=== PATIENT | female | born 1945 | race Caucasian/White ===

== ENCOUNTER 2023-09-14 13:35 | Emergency (ER) | payer OTHER, SELFPAY ==
[2023-09-14 13:47] VITALS: BP 180/75
[2023-09-14 14:16] LABS: % Basophils 0.5 % (0-2); % Eosinophils 1.3 % (0-6); % Immature Granulocytes 0.4 % (0-0.5); % Lymphocytes 16.3 % (20.5-51.1); % Monocytes 5.4 % (1.7-9.3); % Neutrophils 76.1 % (42.2-75.2); Absolute Eosinophils 0.1 10^3/uL (0-0.7); Absolute Lymphocytes 0.9 10^3/uL (1.2-3.4); Absolute Monocytes 0.3 10^3/uL (0.1-0.6); Absolute Neutrophils 4.3 10^3/uL (1.4-6.5); Hematocrit 39.5 % (37.0-47.0); Hemoglobin 13.5 g/dL (12.0-16.0); Mean Corp Hgb Conc. 34.2 g/dL (33.0-37.0); Mean Corpuscular Hgb 27.7 pg (27.0-31.0); Mean Corpuscular Volume 81.1 fL (81.0-99.0); Mean Platelet Volume 10.6 fL (7.4-10.4); Nucleated Red Blood Cells % 0 %; Platelet Count 133 10^3/uL (130-400); Red Blood Cell Count 4.87 10^6/uL (4.20-5.40); Red Cell Dist. Width 13.7 % (11.5-14.5); White Blood Cell Count 5.6 10^3/uL (4.8-10.8)
[2023-09-14 14:26] LABS: ALT (SGPT) 22 U/L (0-35); AST (SGOT) 28 U/L (14-36); Alkaline Phosphatase 103 U/L (38-126); Blood Urea Nitrogen 20 mg/dl (7-17); Calcium 9.5 mg/dl (8.4-10.2); Carbon Dioxide 27 mmol/L (22-30); Chloride 105 mmol/L (98-107); Glucose 153 mg/dl (70-99); Potassium 3.8 mmol/L (3.5-5.1); Sodium 136 mmol/L (135-145); Total Bilirubin 0.6 mg/dl (0.2-1.3); Total Protein 6.3 g/dl (6.3-8.2); eGFR > 60.00
[2023-09-14 15:34] VITALS: BMI 33.1
--- NOTE | 2023-09-14 15:46 | PTCARENOTE ---
CAROLA douglas ordered by Luke FLOWERS. Pt refused test. PA made aware.
[2023-09-14 16:54] LABS: Urine Albumin Negative (Neg - Trace); Urine Bilirubin Negative (Negative); Urine Character Clear (Clear); Urine Color Yellow; Urine Glucose Negative (Negative); Urine Ketone Negative (Negative); Urine Leukocyte 1+ (Negative); Urine Nitrite Negative (Negative); Urine Occult Blood Negative (Negative); Urine Urobilinogen Negative (Neg - 1+)
[2023-09-14 17:15] LABS: Urine Bacteria Few (Negative); Urine Red Blood Cell 0-2 /HPF (0-2)
--- NOTE | 2023-09-14 17:18 | ED.GENMED ---
History of Present Illness
General
Chief Complaint: Skin Problem
Time Seen by Provider: 09/14/23 15:13
Travel History
Have you had any contact with someone who has COVID-19?: No
Do you have any symptoms of coronavirus? Fever > 100 degrees, chills, cough, shortness of breath, sore throat, loss of taste or smell, muscle aches, or headache?: No
History of Present Illness
History of Present Illness:
78-year-old female with history of poorly controlled diabetes presents to the emergency department for evaluation of a right leg wound sustained 1 week ago. She is concerned the wound is not healing appropriately. She was seen in urgent care
yesterday and started on cephalexin. She is concerned that she feels as though the wound has become increasingly red and painful today as well as noted a low-grade fever of 100 Fahrenheit today. She denies any nausea or vomiting. Has been
compliant with the antibiotic since yesterday.
Past History
Past History
ED Past Medical History: Asthma, CAD, GERD, HTN, Hypercholesterolemia, NIDDM and Other (Migraines, PNA, Macular degeneration, Rosacia, Iron def anemia, NIELSEN)
ED Past Surgical History: Cardiac (Cardiac catheterization stents), Gynecological (Hysterectomy), Orthopedic (Lumbar spine surgery) and Other (Cataracts,)
Patient has exhibited threatening behavior?: No
PSI?: No
Social History
Tobacco: Non-smoker
Alcohol: None
Drug: None
Personal:
Living: alone
Employment: Retired
Review of Systems
Review of Systems
Allergies reviewed?: Yes
All Other Systems: ROS reviewed and negative except as documented in HPI and ROS
Phy Exam
Physical Exam
Physical Exam:
GEN: Well appearing, NAD, WDWN
HEENT: Oral mucosa moist, no scleral icterus
Cardiac: Regular rate
Lung: No respiratory distress, no tachypnea
MSK: No gross deformity or injuries
Skin: Good color, no pallor or jaundice, no rashes. There is a superficial 1 cm x 2 cm wound to the right anterior lower leg with good central granulation tissue and minimal surrounding erythema. There is some degree of tenderness to the wound.
No purulent discharge. No leg edema
Neuro: AO x3, moves all extremities freely
Psych: Calm, cooperative
Course
Orders/Labs/Results
Orders:
Orders
09/14/23 14:02
CMP [Comprehensive Metabolic Panel] Urgent
Complete Blood Count/With Diff Urgent
Blood Culture Urgent
TIM Source: Blood/Venous
Specimen Description:
09/14/23 16:36
Urinalysis Reflex To Culture Urgent
Date Specimen was Collected: 09/14/23
Time Specimen was Collected: 16:32
Urine Microscopic Reflex Cult Urgent
Urine Culture Urgent
TIM Source: U
Specimen Description:
Date Specimen was Collected: 09/14/23
Time Specimen was Collected: 16:32
Abnormal Lab Results
09/14/23 09/14/23
14:02 16:36
MPV 10.6 H fL
(7.4-10.4)
Absolute Lymphs (auto) 0.9 L 10^3/uL
(1.2-3.4)
Neutrophils % 76.1 H %
(42.2-75.2)
Lymphocytes % 16.3 L %
(20.5-51.1)
BUN 20 H mg/dl
(7-17)
Glucose 153 H mg/dl
(70-99)
Leukocyte Esterase Rfl 1+ A
(Negative)
Urine WBC (Reflex) 11-15 A /HPF
(0-5)
Urine Bacteria (Reflex) Few A
(Negative)
09/14/23 14:02
09/14/23 14:02
Vital Signs
Initial and Last Documented VS:
Initial Vital Signs
Temp Pulse Resp BP Pulse Ox
98.1 F 76 16 180/75 95
09/14/23 13:47 09/14/23 13:47 09/14/23 13:47 09/14/23 13:47 09/14/23 13:47
Last Documented Vital Signs
Temp Pulse Resp BP Pulse Ox
97.9 F 76 16 180/75 95
09/14/23 16:41 09/14/23 13:47 09/14/23 13:47 09/14/23 13:47 09/14/23 13:47
MDM/Problems Addressed
MDM/Problems Addressed:
The wound does not look infected. Patient's low-grade fever is not likely due to this. Her labs are certainly reassuring. Urinalysis is suggestive of UTI, the patient has a history of recurrent UTIs recently, last 3 urine culture showed
cephalosporin sensitive E. coli. I did discuss the possibility of asymptomatic bacteriuria with the patient and her daughter and they are encouraged to follow-up with her urologist regarding this. She will continue the cephalexin, elevate the leg
and wound care guidelines were discussed. Recommend outpatient wound care follow-up
*Critical Care Note
Total Time (30-74mins, 75-104mins- exclusive of procedures): Not Applicable
ED Attending Note
-
Portions of this chart may have been created with voice recognition software.� Occasional wrong word or��sound alike� substitutions may have occurred due to the inherent limitations of voice recognition software.
Discharge Plan
Departure
Patient Disposition: Home (Routine Discharge)
Date of Disposition: 09/14/23
Time of Disposition: 17:18
Patient with high blood pressure during this ER visit?: No
Discharge Problem:
Bacteriuria, Leg wound, right
Instructions: Wound Care (DC)
Prescriptions:
No Action
insulin aspart U-100 [Novolog FlexPen U-100 Insulin] 300 UNITS/3 ML insulin pen
1 sliding scale dose SC AC
pantoprazole 40 MG tablet,delayed release (DR/EC)
40 mg PO DAILY Qty: 30 11RF
cyclobenzaprine 10 mg Tablet
10 mg PO HS PRN (Reason: Muscle spasms)
polyethylene glycol 3350 [Miralax] 17 gram Powder In Packet
17 g PO DAILYPRN PRN (Reason: constipation)
metoprolol succinate 25 mg tablet extended release 24 hr
12.5 mg PO DAILY
duloxetine 30 mg Capsule,Delayed Release(Dr/Ec)
30 mg PO BID
Toujeo Max U-300 SoloStar 300 unit/mL (3 mL) Insulin Pen
58 unit SC HS
diphenhydramine HCl [Benadryl] 25 mg Capsule
25 mg PO HS PRN (Reason: Allergies/Post Nasal Drip)
multivitamin Tablet
1 tab PO DAILY
ascorbic acid (vitamin C) [Vitamin C] 1,000 mg Tablet
1,000 mg PO DAILY@1200
losartan 25 mg tablet
25 mg PO Q48H
magnesium 200 mg Tablet
200 mg PO BID
hydrocodone-acetaminophen 5-300 mg tablet
1 tab PO TID PRN (Reason: moderate pain)
Patient Comments:
05/15/2023: last filled 03/26/23, 90 tabs for 30 days from [facility]#[id number]
cholecalciferol (vitamin D3) [Vitamin D3] 25 mcg (1,000 unit) Tablet
25 mcg PO DAILY@1200
ferrous sulfate 27 mg iron Tablet
27 mg PO DAILY@1200
omega 9-[id number]-[id number]-fish oil [Fish Oil] 1,000 mg (120 mg-180 mg) Capsule
1 cap PO DAILY@1200
Vabysmo 6 mg/0.05 mL Solution
6 mg INTRAVITREAL Q6W
aspirin 81 MG tablet,delayed release (DR/EC)
81 mg PO HS
Referrals:
Adriana Flores CRNP [Family Provider] -
Chase Escamilla MD [Active] -
Activity Restrictions/Additional Instructions:
Follow-up with wound care later this week
Continue the antibiotics you are previously prescribed
Please keep the leg elevated and change the dressing daily, wash with simple soap and water. Apply simple Vaseline to the wound as opposed to topical antibiotics
Interventions
Interventions:
*Risk Screen - Suicide Last Done: 09/14/23 15:35
*General Assessment Last Done: 09/14/23 15:37
*Neglect/Abuse Screening Last Done: 09/14/23 15:35
ED- Fall Risk Assessment Last Done: 09/14/23 15:35
*ED COVID-19 Vaccine History Last Done: 09/14/23 13:47
ED-Skin Assessment Last Done: 09/14/23 15:36
== END 2023-09-14 18:04 | disposition home or self-care (01) ==
LOC: EMR 13:35
PROVIDERS: Physician Assistant; EMERGENCY PHYSICIAN Emergency Medicine; FAMILY PHYSICIAN Nurse Practitioner Primary Care
DX: R82.71 Bacteriuria (principal); S81.801A Unspecified open wound, right lower leg, initial encounter; X58.XXXA Exposure to other specified factors, initial encounter; E11.36 Type 2 diabetes mellitus with diabetic cataract; E78.00 Pure hypercholesterolemia, unspecified; I10 Essential (primary) hypertension; I25.10 Atherosclerotic heart disease of native coronary artery without angina pectoris; J45.909 Unspecified asthma, uncomplicated; K21.9 Gastro-esophageal reflux disease without esophagitis; Z87.440 Personal history of urinary (tract) infections; Z90.710 Acquired absence of both cervix and uterus; Z95.5 Presence of coronary angioplasty implant and graft
CPT/HCPCS: 99283; 80053; 81003; 81015; 85025; 87040; 87086

== ENCOUNTER → 2023-09-18 08:09 | Outpatient (REF) | payer OTHER, SELFPAY | LOC: WOUND 08:09 | PROVIDERS: ATTENDING PHYSICIAN Surgery; REFERRING PHYSICIAN Nurse Practitioner Primary Care | DX: L97.811 Non-pressure chronic ulcer of other part of right lower leg limited to breakdown of skin (principal); E11.65 Type 2 diabetes mellitus with hyperglycemia; E11.42 Type 2 diabetes mellitus with diabetic polyneuropathy; E11.69 Type 2 diabetes mellitus with other specified complication; K75.81 Nonalcoholic steatohepatitis (NASH); I25.10 Atherosclerotic heart disease of native coronary artery without angina pectoris | CPT/HCPCS: 97597; 99204 ==

== ENCOUNTER → 2023-09-26 13:22 | Outpatient (REF) | payer OTHER, SELFPAY | LOC: WOUND 13:22 | PROVIDERS: ATTENDING PHYSICIAN Surgery; REFERRING PHYSICIAN Nurse Practitioner Primary Care | DX: L97.811 Non-pressure chronic ulcer of other part of right lower leg limited to breakdown of skin (principal); E11.65 Type 2 diabetes mellitus with hyperglycemia; E11.42 Type 2 diabetes mellitus with diabetic polyneuropathy; E11.69 Type 2 diabetes mellitus with other specified complication; K75.81 Nonalcoholic steatohepatitis (NASH); I25.10 Atherosclerotic heart disease of native coronary artery without angina pectoris | CPT/HCPCS: 99212 ==

== ENCOUNTER 2023-09-28 20:26 | Observation (INO) | payer OTHER, SELFPAY ==
[2023-09-28 12:28] VITALS: BP 149/73
[2023-09-28 12:46] LABS: % Basophils 0.6 % (0-2); % Eosinophils 1.4 % (0-6); % Immature Granulocytes 0.2 % (0-0.5); % Lymphocytes 19.3 % (20.5-51.1); % Monocytes 7.1 % (1.7-9.3); % Neutrophils 71.4 % (42.2-75.2); Absolute Eosinophils 0.1 10^3/uL (0-0.7); Absolute Lymphocytes 1.2 10^3/uL (1.2-3.4); Absolute Monocytes 0.5 10^3/uL (0.1-0.6); Absolute Neutrophils 4.6 10^3/uL (1.4-6.5); Hematocrit 41.5 % (37.0-47.0); Hemoglobin 13.9 g/dL (12.0-16.0); Mean Corp Hgb Conc. 33.5 g/dL (33.0-37.0); Mean Corpuscular Hgb 27.6 pg (27.0-31.0); Mean Corpuscular Volume 82.3 fL (81.0-99.0); Mean Platelet Volume 10.8 fL (7.4-10.4); Nucleated Red Blood Cells % 0 %; Platelet Count 144 10^3/uL (130-400); Red Blood Cell Count 5.04 10^6/uL (4.20-5.40); Red Cell Dist. Width 13.6 % (11.5-14.5); White Blood Cell Count 6.4 10^3/uL (4.8-10.8)
[2023-09-28 13:00] LABS: ALT (SGPT) 23 U/L (0-35); AST (SGOT) 27 U/L (14-36); Albumin 4.2 g/dl (3.5-5.0); Alkaline Phosphatase 103 U/L (38-126); Blood Urea Nitrogen 23 mg/dl (7-17); Calcium 9.9 mg/dl (8.4-10.2); Carbon Dioxide 29 mmol/L (22-30); Chloride 101 mmol/L (98-107); Glucose 197 mg/dl (70-99); Potassium 3.7 mmol/L (3.5-5.1); Sodium 136 mmol/L (135-145); Total Bilirubin 0.6 mg/dl (0.2-1.3); Total Protein 6.4 g/dl (6.3-8.2); eGFR > 60.00
[2023-09-28 13:49] LABS: Urine Albumin Negative (Neg - Trace); Urine Bilirubin Negative (Negative); Urine Character Clear (Clear); Urine Color Yellow; Urine Glucose Negative (Negative); Urine Ketone Negative (Negative); Urine Leukocyte Negative (Negative); Urine Nitrite Negative (Negative); Urine Occult Blood Negative (Negative); Urine Urobilinogen Negative (Neg - 1+); Urine pH 6.5 (5.0-9.0)
--- NOTE | 2023-09-28 14:43 | ED.GENMED ---
History of Present Illness
General
Chief Complaint: Weakness
Source: patient and family
Exam Limitations: none
Time Seen by Provider: 09/28/23 14:24
Nursing documentation reviewed up to this point in time: agreed with
Travel History
Have you had any contact with someone who has COVID-19?: No
Do you have any symptoms of coronavirus? Fever > 100 degrees, chills, cough, shortness of breath, sore throat, loss of taste or smell, muscle aches, or headache?: No
History of Present Illness
History of Present Illness:
Patient is a 78-year-old female brought to the ER by family for evaluation. Patient has had chronic lightheadedness/dizziness for years with no diagnosis. She denies room spinning /sensation and neuro did not feel that she has vertigo. Daughter
reports he has been eval by neurology as well as cardiology. Daughter reports patient almost fell last night while getting in bed and again this morning in the shower. Patient denies any upper or lower extremity numbness [place] weakness. Patient
denies any speech difficulties. Patient denies any headache. They have been seen by neurology, Dr. Greenberg in the past and had brain MRI in Aug 21
They recently [address] Dr. De La Vega on Friday of cardiology and scheduled for Holter monitor echo and nuclear stress test. Patient saw her family doctor on Friday and has had increasing swelling lower extremities and gained 10 pounds and on Friday
was started on diuretic by her pediatric rn. She started diuretics yesterday.
She denies any recent illness fever chills. She denies any shortness of breath chest pain.
She has had intermittent sweats.
Past History
Past History
ED Past Medical History: Asthma, CAD, GERD, HTN, Hypercholesterolemia, NIDDM and Other (Migraines, PNA, Macular degeneration, Rosacia, Iron def anemia, NIELSEN)
ED Past Surgical History: Cardiac (Cardiac catheterization stents), Gynecological (Hysterectomy), Orthopedic (Lumbar spine surgery) and Other (Cataracts,)
Patient has exhibited threatening behavior?: No
PSI?: No
Social History
Tobacco: Non-smoker
Alcohol: None
Drug: None
Personal:
Living: alone
Employment: Retired
Review of Systems
Review of Systems
Allergies reviewed?: Yes
All Other Systems: ROS reviewed and negative except as documented in HPI and ROS
Constitutional: Reports no symptoms; Denies fever, fatigue or chills
Respiratory: Reports no symptoms
Cardiac: Reports no symptoms
ABD/GI: Reports no symptoms; Denies nausea or vomiting
: Reports no symptoms
Musculoskeletal: Reports no symptoms
Skin: Reports no symptoms
Neurological: Reports dizzy and other (falling due to balance ); Denies headache
Psychiatric: Reports no symptoms
Phy Exam
General Physical Exam
General Presentation: no apparent distress
General age: appears stated age
General Skin: warm and dry
General Habitus: normal
General Mental: alert
General Hydration: appears well hydrated
Eye Exam
Eye Exam: PERRL, EOMI and other (No nystagmus bilaterally)
Eye Exam General: PERRL: bilateral and EOM intact: bilateral
Pupil Exam: Bilateral: round and reactive
Cardiovascular Exam
Cardiovascular Exam: regular rate/rhythm, no murmur and normal peripheral pulses
Pulmonary Exam
Pulmonary Exam: lungs clear and no respiratory distress
Neurological Exam
Neurological Exam: alert, oriented x3, no motor deficits, normal reflexs and speech normal
Franki Coma Scale
Eye Opening: Spontaneous
Verbal Response: Oriented
Motor Response: Obeys Commands
GCS Total Score: 15
Musculoskeletal Exam
Musculoskeletal Exam: full ROM
Skin Exam
Skin Exam: normal color and warm/dry
Psychiatric Exam
Psychiatric Exam: normal mood/affect
Course
Orders/Labs/Results
Orders:
Orders
09/28/23 12:31
Electrocardiogram (*1) Urgent
Reason for Study: Chest Pain
EKG- Treatment ONCE
09/28/23 12:37
Complete Blood Count/With Diff Urgent
Comprehensive Metabolic Panel Urgent
09/28/23 13:38
Urinalysis Reflex To Culture Urgent
Date Specimen was Collected: 09/28/23
Time Specimen was Collected: 13:21
09/28/23 15:09
CT Head W/o Iv Contrast Urgent
Comment:
Reason For Exam: dizizness/fall
09/28/23 15:58
0.9% Sodium Chloride 500 ml [Nss] 500 ml IV BOLUS
09/28/23 17:34
Add On- LAB Urgent
Tests Added?: troponin
09/28/23 18:03
Hydrocodone 5/APAP 325 [[place] 5/325] 1 tablet PO NOW STA
09/28/23 18:15
Troponin I Urgent
Abnormal Lab Results
09/28/23
12:37
MPV 10.8 H fL
(7.4-10.4)
Lymphocytes % 19.3 L %
(20.5-51.1)
BUN 23 H mg/dl
(7-17)
Glucose 197 H mg/dl
(70-99)
09/28/23 12:37
09/28/23 12:37
Vital Signs
Initial and Last Documented VS:
Initial Vital Signs
Temp Pulse Resp BP Pulse Ox
98.3 F 76 18 149/73 92
09/28/23 12:28 09/28/23 12:28 09/28/23 12:28 09/28/23 12:28 09/28/23 12:28
Last Documented Vital Signs
Temp Pulse Resp BP Pulse Ox
97.9 F 70 19 147/62 96
09/28/23 17:22 09/28/23 17:22 09/28/23 17:22 09/28/23 16:09 09/28/23 17:22
MDM/Problems Addressed
Differential Diagnosis Includes:
Not limited to fall, chronic dizziness, dehydration
MDM/Problems Addressed:
Patient is a 78-year-old female with dizziness for months evaluated by neurology in the past presents with increasing dizziness over the past day with 2 falls within the past 24 hours. Patient is on aspirin only no other blood thinners. She does
have history of cardiac stents. 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 Patient has had no chest pain. She has had complaints of dizziness here in the ER. With complaints of
2 falls dizziness worsening over the past 24 hours daughter is very concerned that patient may fall again. Patient had no chest pain no acute findings on EKG and has normal cardiac troponin. Urinalysis is negative for infection. Patient denies
any recent fevers and is afebrile with a normal white count stable hemoglobin, BUN very minimally elevated. Patient is drinking fluids here in the ER.
Chronic conditions affecting care:
Dizziness for months now with increasing dizziness frequent falls x 2
*Radiology
Radiology exam reviewed: radiology read reviewed
*Pulse Oximetry
Patient hypoxic: no
*EKG
Interpreted by ED Provider?: Yes
Interpretation: abnormal
Heart Rate: 72
Rate: normal
Rhythm: sinus
Ischemia: non-specific ST changes
*Critical Care Note
Total Time (30-74mins, 75-104mins- exclusive of procedures): Not Applicable
Data Reviewed
Review of Other/Old Records Reveals: Radiology Studies
Source: patient and family
ED Attending Note
-
Portions of this chart may have been created with voice recognition software.� Occasional wrong word or��sound alike� substitutions may have occurred due to the inherent limitations of voice recognition software.
Discharge Plan
Departure
Patient Disposition: Admit
Date of Disposition: 09/28/23
Time of Disposition: 19:13
Admit to: Med/Surg
Admit to doctor: hospitalist
Presentation/result/management discussed w/ accepting MD/DO: Hospitalist
Patient with high blood pressure during this ER visit?: Yes
Condition: Fair
Covid-19: Not Applicable
Discharge Problem:
Dizziness
Prescriptions:
No Action
insulin aspart U-100 [Novolog FlexPen U-100 Insulin] 300 UNITS/3 ML insulin pen
1 sliding scale dose SC AC
pantoprazole 40 MG tablet,delayed release (DR/EC)
40 mg PO DAILY Qty: 30 11RF
cyclobenzaprine 10 mg Tablet
10 mg PO HS PRN (Reason: Muscle spasms)
polyethylene glycol 3350 [Miralax] 17 gram Powder In Packet
17 g PO DAILYPRN PRN (Reason: constipation)
metoprolol succinate 25 mg tablet extended release 24 hr
12.5 mg PO DAILY
duloxetine 30 mg Capsule,Delayed Release(Dr/Ec)
30 mg PO BID
Toujeo Max U-300 SoloStar 300 unit/mL (3 mL) Insulin Pen
58 unit SC HS
diphenhydramine HCl [Benadryl] 25 mg Capsule
25 mg PO HS PRN (Reason: Allergies/Post Nasal Drip)
multivitamin Tablet
1 tab PO DAILY
ascorbic acid (vitamin C) [Vitamin C] 1,000 mg Tablet
1,000 mg PO DAILY@1200
losartan 25 mg tablet
25 mg PO Q48H
magnesium 200 mg Tablet
200 mg PO BID
hydrocodone-acetaminophen 5-300 mg tablet
1 tab PO TID PRN (Reason: moderate pain)
Patient Comments:
05/15/2023: last filled 03/26/23, 90 tabs for [address] [facility]#[id number]
cholecalciferol (vitamin D3) [Vitamin D3] 25 mcg (1,000 unit) Tablet
25 mcg PO DAILY@1200
ferrous sulfate 27 mg iron Tablet
27 mg PO DAILY@1200
omega 6-fls-hnf-fish oil [Fish Oil] 1,000 mg (120 mg-180 mg) Capsule
1 cap PO DAILY@1200
Vabysmo 6 mg/0.05 mL Solution
6 mg INTRAVITREAL Q6W
aspirin 81 MG tablet,delayed release (DR/EC)
81 mg PO HS
Referrals:
Jose Gagnon MD [Family Provider] -
Interventions
Interventions:
*Risk Screen - Suicide Last Done: 09/28/23 17:22
*General Assessment Last Done: 09/28/23 17:22
*Neglect/Abuse Screening Last Done: 09/28/23 17:22
ED- Fall Risk Assessment Last Done: 09/28/23 17:22
*ED COVID-19 Vaccine History Last Done: 09/28/23 17:22
ED- Cardiac Assessment Last Done: 09/28/23 17:22
ED- Neurological Assessment Last Done: 09/28/23 17:22
ED- Pulmonary Assessment Last Done: 09/28/23 17:22
[2023-09-28 16:09] VITALS: BP 147/62
[2023-09-28 18:46] LABS: Troponin I < 0.012 ng/ml
[2023-09-28] MEDS: NORCO 5/325 1 TABLET PO (18:53)
--- NOTE | 2023-09-28 20:13 | HPS.HSE ---
Family Physician
-
Family Physician: Jose Gagnon
Chief Complaint
-
Ambulatory Dysfunction
History of Present Illness
Patient is a 78y F with PMH significant for hypertension, chronic pain / spinal DDD, DM-II and ASCVD who presents to ED complaining of ambulatory dysfunction with 2 falls in the past 2 days. History obtained from patient and family both at
bedside and via phone.
Patient has been having progressive issues with unsteady gait / poor balance for the past 6 months or so. Symptoms are intermittently worse and these acute exacerbations have previously been attributed to UTIs. Patient has been treated for UTI 7-8
times in the past few months and recently completed a course of Keflex. She just started Hiprex for prophylaxis.
Over the past week, patient has noted lower extremity swelling and significant weight gain - reporting 10-12 lbs weight gain in the past 3-4 days.
She spoke with her Pigment Mixer and was started on Lasix 40mg daily and has taken 2 doses thus far.
Yesterday evening, patient was walking at home when she lost her balance and fell to the side. She fell into the wall and was able to regain her balance / footing without falling to the floor. She denies any significant injury.
Today she was showering and lost her balance again. She fell into her shower chair - sitting down hard - but again, not falling to the ground. She denies any head injury / trauma / LOC / etc.
Patient describes her symptoms as 'dizziness', but denies any room spinning or vertigo symptoms. She complains of episodes of nausea, diaphoresis and lightheadedness prior to her falls.
Her symptoms have always occurred during changes in position - soon after standing, getting out of bed, etc. But they have been significant wore over the past few days.
Medical History
Past Medical History
Past Medical History: Reports Other
Additional Past Medical History:
ASCVD
Hypertension
DM-II
Macular Degeneration
Chronic Pain Syndrome
DDD
Peripheral Neuropathy
Recurrent UTIs
GERD
Past Surgical History: Reports Other
Additional Past Surgical History:
PTCA with Stent
Carpal Tunnel Release
SANTOS
Lumbar Laminectomy / Discectomy / Fusion
Cataracts
Thyroid Nodule Biopsy
Social History
Tobacco: Non-smoker
Alcohol: None
Drug: None
Family History
Family History: Diabetes and Other (Brother: Testicular Cancer Father: Esophageal Cancer Sisters: Parkinson's Disease, Breast Cancer)
Allergies / Home Medications
Allergies reflects when Allergies were last updated in [facility].
Home Medications with original date entered in [facility]
Allergy/Medication List:
Allergies
Allergy/AdvReac Type Severity Reaction Status Date / Time
house dust Allergy Shortness Verified 09/14/23 13:56
of Breath
hydromorphone [From Dilaudid] Allergy Nausea / Verified 09/14/23 13:56
Vomiting
latex Allergy Itching Verified 09/14/23 13:56
mold extracts Allergy throat Verified 09/14/23 13:56
closing
morphine [Morphine] Allergy Tongue Verified 09/14/23 13:56
Swelling
oxycodone [From Percocet] Allergy Nausea / Verified 09/14/23 13:56
Vomiting
Penicillins Allergy Rash Verified 09/14/23 13:56
propoxyphene Allergy Nausea / Verified 09/14/23 13:56
[From Darvocet-N] Vomiting
Sulfa (Sulfonamide Allergy Rash Verified 09/14/23 13:56
Antibiotics)
filiberto cheese Allergy throat Uncoded 09/14/23 13:56
closing
seasonal allergies Allergy runny nose Uncoded 09/14/23 13:56
Home Medications
insulin aspart U-100 100 unit/mL (3 mL) subcutaneous pen (Novolog FlexPen U-100 Insulin aspart) 15 unit SC DAILY Diabetes 05/05/17
pantoprazole 40 mg tablet,delayed release 40 mg PO DAILY ##30 09/19/17
cyclobenzaprine 10 mg tablet 10 mg PO HS PRN Muscle spasms 10/29/22
duloxetine 30 mg capsule,delayed release 30 mg PO BID Mental Health/Anxiety 10/29/22
metoprolol succinate 25 mg tablet,extended release 24 hr 12.5 mg PO DAILY Blood pressure 10/29/22
polyethylene glycol 3350 17 gram oral powder packet (Miralax) 17 g PO DAILYPRN PRN constipation 10/29/22
diphenhydramine HCl 25 mg capsule (Benadryl) 25 mg PO HS PRN Allergies/Post Nasal Drip 12/26/22
ascorbic acid (vitamin C) 1,000 mg tablet (Vitamin C) 1,000 mg PO NOON 05/15/23
aspirin 81 mg tablet,delayed release 81 mg PO HS 05/15/23
cholecalciferol (vitamin D3) 25 mcg (1,000 unit) tablet (Vitamin D3) 25 mcg PO NOON 05/15/23
faricimab-svoa 6 mg/0.05 mL intravitreal solution (Vabysmo) 6 mg intravitreal Q6W 05/15/23
ferrous sulfate 27 mg iron tablet 27 mg PO NOON 05/15/23
magnesium 200 mg tablet 200 mg PO BID 05/15/23
multivitamin 1 tab PO DAILY 05/15/23
omega 4-wpy-elb-fish oil 1,000 mg (120 mg-180 mg) capsule (Fish Oil) 1 cap PO DAILY@1200 05/15/23
evolocumab 140 mg/mL subcutaneous pen injector (Repatha SureClick) 140 mg SC Q2W 09/28/23
hydrocodone 7.5 mg-acetaminophen 325 mg tablet 1 tab PO TID 09/28/23
insulin aspart U-100 100 unit/mL (3 mL) subcutaneous pen (Novolog FlexPen U-100 Insulin aspart) 18 unit SC NOON 09/28/23
insulin aspart U-100 100 unit/mL (3 mL) subcutaneous pen (Novolog FlexPen U-100 Insulin aspart) 27 unit SC QPM 09/28/23
insulin glargine 100 unit/mL (3 mL) subcutaneous pen (Lantus Solostar U-100 Insulin) 60 unit SC HS 09/28/23
methenamine hippurate 1 gram tablet (Hiprex) 1 g PO BID 09/28/23
vibegron 75 mg tablet (Gemtesa) 75 mg PO QPM 09/28/23
Review of Systems
-
History Source: Patient
A 12 point ROS was completed and negative except as noted: Yes
Constitutional: Reports Fatigue; Denies Fever or Chills
EENT: Denies Sore Throat
Respiratory: Denies Cough or Trouble Breathing
Cardiac: Reports Diaphoresis; Denies Chest Pain, Palpitations or Syncope
Abdomen/GI: Reports Nausea; Denies Abdominal Pain, Vomiting, Diarrhea, Constipated, Bloody Stools or Black Stools
: Denies Dysuria, Frequency, Flank Pain or Incontinence
Musculoskeletal: Reports Edema and Other (Back Pain - mostly thoracic); Denies Joint Pain
Psych: Denies Depression or Anxiety
Physical Exam
Vital Signs
Vital Signs
Temp Pulse Resp BP Pulse Ox
97.9 F 70 19 147/62 96
09/28/23 17:22 09/28/23 17:22 09/28/23 17:22 09/28/23 16:09 09/28/23 17:22
Physical Exam
General: Other (78y F in no acute distress.)
HEENT: PERRLA and Other (Dry MM)
Respiratory: Clear; No Wheezes, Rales or Rhonchi
Cardiac: S1/S2 and Regular Rhythm; No Murmur
GI: Soft, Non Tender, Non Distended and Normal Bowel Sounds
Musculoskeletal: No Clubbing, No Cyanosis and Other (Trace edema at the ankles bilaterally.)
Skin: Other (R anterior medina wound with dressing in place. )
Neuro: AO x 3 and Other (Mild weakness in the LLE. Sensation is intact / symmetric. Normal [id number].)
Psych: Depressed; No Anxious
Laboratory Results
-
09/28/23 12:37
09/28/23 12:37
Laboratory Results
Total Bilirubin 0.6 mg/dl (0.2-1.3) 09/28/23 12:37
AST 27 U/L (14-36) 09/28/23 12:37
ALT 23 U/L (0-35) 09/28/23 12:37
Alkaline Phosphatase 103 U/L (38-126) 09/28/23 12:37
Troponin I < 0.012 ng/ml 09/28/23 18:15
Impression/Plan
-
A/P: Patient is a 78y F with PMH significant for ASCVD, HTN, DM-II and chronic pain who presents to ED complaining of gait dysfunction / frequent falls.
Fall at Home
Ambulatory Dysfunction
- Observe overnight for further evaluation and treatment.
- Suspect that her current symptoms are multifactorial and related to chronic ambulatory dysfunction and acute / exacerbating factors.
- PT / OT evaluations.
- ? 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
- Treat acute issues / adjust meds / etc to improve symptomatology.
- No evidence of acute CVA, etc.
Orthostatic Hypotension
LE Edema
Weight Gain
- Acute increase in orthostatic symptoms following initiation of Lasix therapy.
- Hold further diuretic for now.
- Check Echo (as was planned for outpatient).
- SCDs / compression stockings.
- Consider Cardiology consult if Echo significantly abnormal.
- Check TFTs.
- Encourage regular PAP use (had been poorly compliant recently).
ASCVD
- Stable. No chest pain, palpitations, etc.
- Given description of symptoms, monitor on tele to rule out any bradyarrhythmia, etc.
- Continue ASA, beta-blockade, etc.
DM-II
- Stable. Continue basal : bolus insulin regimen.
- Follow glucose and cover with SSI as neded.
- Update A1C.
Chronic Pain Syndrome
Spinal DDD
- Followed by Pain Management as an outpatient.
- Try to minimize narcotic medication as a able as these are likely contributing to balance issues to some degree.
- PT / OT as noted above
- Follow-up with Pain Management after discharge.
DAVID
- Patient reportedly not using PAP therapy recently.
- Was encouraged 08/26 to resume PAP use and would agree with this.
- Poorly treated DAVID certainly could be contributing to edema, fatigue and general weakness, etc.
Chronic Vertigo
- This is by history and has been attributed to patient's prior strokes seen on MRI.
- Patient does not describe vertiginous symptoms to me and current issues seem more c/w orthostasis / hypotension / vagal symptoms.
Frequent UTIs
- Would be cautious treating for UTI without active urinary symptoms.
- Seems clear that her balance issues, etc are not specifically related to UTIs.
DVT Prophylaxis: Lovenox
Code Status: Full
[2023-09-28 20:28] VITALS: BP 162/63
[2023-09-28 21:47] LABS: Glucose - Point of Care 182 mg/dl (70-99)
[2023-09-28 21:49] VITALS: BP 133/65; BP 138/67; BP 142/72; PULSE 78; PULSE 85; BMI 32.1
--- NOTE | 2023-09-28 22:00 | PTCARENOTE ---
Pt from ED A+OX3 VSS, admission completed with pt and pts daughter in law. Pt stating difficulty swallowing since 2019 at times- swallow screen completed with no issue. Orthostatic VS completed, bed alarm maintained for safety. Will continue to
monitor and assess pt.
[2023-09-28] MEDS: CYMBALTA DELAYED RELEASE 30 MG PO (22:22)
[2023-09-28] MEDS: ASPIR LOW (ENTERIC COATED) 81 MG PO (22:22)
[2023-09-28] MEDS: LANTUS 0.599999999999999978 UNITS SC (22:25)
[2023-09-28 22:48] LABS: TSH Reflex To Free T4 5.15 uIU/ml (0.47-4.68)
[2023-09-28 23:16] LABS: Free T4 0.95 ng/dl (0.78-2.19)
[2023-09-28 23:37] VITALS: BP 144/72
[2023-09-29] VITALS (10 sets, daily range): BP systolic 130–160; BP diastolic 52–78; PULSE 66–86; O2SAT 92; BMI 32.4
[2023-09-29 03:14] LABS: Glucose - Point of Care 176 mg/dl (70-99)
[2023-09-29 07:22] LABS: Hemoglobin 13.7 g/dL (12.0-16.0); Mean Corp Hgb Conc. 32.6 g/dL (33.0-37.0); Mean Corpuscular Hgb 27.4 pg (27.0-31.0); Mean Platelet Volume 10.6 fL (7.4-10.4); Platelet Count 133 10^3/uL (130-400); Red Cell Dist. Width 13.7 % (11.5-14.5); White Blood Cell Count 5.9 10^3/uL (4.8-10.8)
[2023-09-29 07:39] LABS: Blood Urea Nitrogen 22 mg/dl (7-17); Calcium 9.3 mg/dl (8.4-10.2); Carbon Dioxide 34 mmol/L (22-30); Chloride 99 mmol/L (98-107); Estimated Creatinine Clearance 75 ml/min; Glucose 194 mg/dl (70-99); Magnesium 1.7 mg/dl (1.6-2.3); Potassium 3.8 mmol/L (3.5-5.1); Sodium 139 mmol/L (135-145); eGFR > 60.00
[2023-09-29 07:44] LABS: Glucose - Point of Care 185 mg/dl (70-99)
[2023-09-29] MEDS: NOVOLOG FLEXPEN-MODERATE RESISTANCE 1 UNITS SC ×2 (08:05→17:26)
[2023-09-29] MEDS: CYMBALTA DELAYED RELEASE 30 MG PO ×2 (08:05→21:05)
[2023-09-29] MEDS: NORCO 7.5/325 1 TABLET PO ×2 (08:05→19:26)
[2023-09-29] MEDS: TOPROL XL 12.5 MG PO (08:05)
[2023-09-29] MEDS: NOVOLOG FLEXPEN 10 UNITS SC ×2 (08:06→12:18)
[2023-09-29 08:50] LABS: Glycohemoglobin (HgbA1c) 8.5 % (4.0-5.6)
[2023-09-29 12:08] LABS: Glucose - Point of Care 221 mg/dl (70-99)
[2023-09-29] MEDS: NOVOLOG FLEXPEN-MODERATE RESISTANCE 3 UNITS SC (12:18)
[2023-09-29] MEDS: VITAMIN C 1000 MG PO (12:18)
--- NOTE | 2023-09-29 13:20 | W.PN.HOSP.TC ---
Today's Communication/Plan
-
hold Lasix, use compression therapy
await Echo
pursue SNF placement
Assessment / Plan
Assessment / Plan
Assessment:
Fall at Home
Ambulatory Dysfunction
- Suspect that her current symptoms are multifactorial and related to chronic ambulatory dysfunction
- Lasix likely causing dizziness
- ? 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
- PT/OT - SNF recommended
Orthostatic Hypotension
LE Edema
Weight Gain
- Acute increase in orthostatic symptoms following initiation of Lasix therapy. per patient, was told to take double dosing for a few days. Patient last dose 09/28 AM. Orthostatics here negative.
- Hold further diuretic for now.
- Check Echo (as was planned for outpatient).
- SCDs/compression stockings.
- Encourage regular PAP use (had been poorly compliant recently).
ASCVD
- Stable.�No chest pain, palpitations, etc.
- Given description of symptoms, monitor on tele to rule out any bradyarrhythmia, etc.
- Continue ASA, beta-blockade, etc.
DM-II
- Stable. Continue basal:bolus insulin regimen.
- Follow glucose and cover with SSI as needed.
- A1C 8.5%
Chronic Pain Syndrome
Spinal DDD
- Followed by Pain Management as an outpatient.
- Try to minimize narcotic medication as a able as these are likely contributing to balance issues to some degree.
- Follow-up with Pain Management after discharge.
- PT/OT - SNF recommended
DAVID
- Patient reportedly not using PAP therapy recently.
- Was encouraged 08/26 to resume PAP use and would agree with this.
- Poorly treated DAVID certainly could be contributing to edema, fatigue and general weakness, etc.
Chronic Vertigo
- This is by history and has been attributed to patient's prior strokes seen on MRI.
- Patient does not describe vertiginous symptoms to me and current issues seem more c/w orthostasis / hypotension / vagal symptoms.
Frequent UTIs
- Would be cautious treating for UTI without active urinary symptoms.
- Seems clear that her balance issues, etc are not specifically related to UTIs.
DVT Prophylaxis:�Lovenox
Code Status:�Full
Anticipated Discharge: 24 - 48 hours
Subjective/Interval History
-
Date of Service: September 29, 2023
mildly dizzy this morning, but overall improved per patient
denies any SOB or CP
Objective Data
-
Labs:
Laboratory Results
09/29/23
06:48
WBC 5.9
Hgb 13.7
Hct 42.0
Plt Count 133
Sodium 139
Potassium 3.8
Chloride 99
Carbon Dioxide 34 H
BUN 22 H
Creatinine 0.7
Glucose 194 H
Calcium 9.3
Vital Signs:
Vital Signs
Temp Pulse Resp BP Pulse Ox
97.8 F 67 16 155/61 94
09/29/23 11:36 09/29/23 11:36 09/29/23 11:36 09/29/23 11:36 09/29/23 11:36
Physical Exam
-
General: No Apparent Distress
HEENT: Normocephalic and Atraumatic
Respiratory: Negative Wheezes
Cardiac: Regular Rhythm
GI: Soft
Genito-urinary: No Costovertebral Tender
Neuro: AO x 3
Hematologic / Lymphatic: No Lymphadenopathy
Psych: Calm
Data Reviewed
-
Total Time Spent with Patient (in minutes): 45
Labs: Labs Reviewed by me
[2023-09-29] MEDS: PROTONIX 40 MG PO (13:41)
--- NOTE | 2023-09-29 15:55 | CM ---
Alert awake oriented patient who lives with her son Eliu and cecilio Granger and their 5 kids. They live in a 2 story home with 4 step to enter and bath/ bed room on first floor. She is assisted in all activities of daily living.CORIE letter given all
questions answered . Corie signed on chart. PT OT evals needed. [place] need [place]
HX [facility]
Pharmacy [facility].
PCP Dr Gagnon
PLAN Probable SNF will need SNF located and auth
[2023-09-29 16:42] LABS: Glucose - Point of Care 169 mg/dl (70-99)
[2023-09-29] MEDS: LOVENOX 40 MG SC (17:26)
[2023-09-29] MEDS: NOVOLOG FLEXPEN 18 UNITS SC (17:26)
[2023-09-29 21:37] LABS: Glucose - Point of Care 153 mg/dl (70-99)
[2023-09-29] MEDS: ASPIR LOW (ENTERIC COATED) 81 MG PO (23:03)
[2023-09-29] MEDS: LANTUS 0.599999999999999978 UNITS SC (23:03)
[2023-09-30 03:44] VITALS: BP 127/71
[2023-09-30 06:00] VITALS: BMI 32.3
[2023-09-30 06:16] LABS: Hematocrit 41.7 % (37.0-47.0); Hemoglobin 13.7 g/dL (12.0-16.0); Mean Corp Hgb Conc. 32.9 g/dL (33.0-37.0); Mean Corpuscular Hgb 27.6 pg (27.0-31.0); Mean Corpuscular Volume 84.1 fL (81.0-99.0); Mean Platelet Volume 10.8 fL (7.4-10.4); Platelet Count 141 10^3/uL (130-400); Red Blood Cell Count 4.96 10^6/uL (4.20-5.40); Red Cell Dist. Width 13.9 % (11.5-14.5); White Blood Cell Count 5.7 10^3/uL (4.8-10.8)
[2023-09-30 06:34] LABS: Blood Urea Nitrogen 22 mg/dl (7-17); Calcium 9.1 mg/dl (8.4-10.2); Carbon Dioxide 29 mmol/L (22-30); Chloride 103 mmol/L (98-107); Estimated Creatinine Clearance 75 ml/min; Glucose 160 mg/dl (70-99); Potassium 3.6 mmol/L (3.5-5.1); Sodium 138 mmol/L (135-145); eGFR > 60.00
[2023-09-30 07:54] LABS: Glucose - Point of Care 162 mg/dl (70-99)
[2023-09-30 07:55] VITALS: BP 165/80
[2023-09-30] MEDS: NOVOLOG FLEXPEN-MODERATE RESISTANCE 1 UNITS SC (09:35)
[2023-09-30] MEDS: CYMBALTA DELAYED RELEASE 30 MG PO ×2 (09:36→20:55)
[2023-09-30] MEDS: NOVOLOG FLEXPEN 10 UNITS SC ×2 (09:36→13:30)
[2023-09-30] MEDS: PROTONIX 40 MG PO (09:37)
[2023-09-30] MEDS: TOPROL XL 12.5 MG PO ×2 (09:37→11:28)
[2023-09-30] MEDS: NORCO 7.5/325 1 TABLET PO ×2 (09:41→21:21)
[2023-09-30 11:55] VITALS: BP 146/69; BP 148/70; BP 153/71; PULSE 67; PULSE 74; PULSE 77
[2023-09-30 12:24] LABS: Glucose - Point of Care 148 mg/dl (70-99)
[2023-09-30] MEDS: NOVOLOG FLEXPEN-MODERATE RESISTANCE SC ×2 (13:30→16:48)
[2023-09-30] MEDS: VITAMIN C 1000 MG PO (13:57)
--- NOTE | 2023-09-30 15:33 | W.PN.HOSP.TC ---
Today's Communication/Plan
-
increase BB dose
pursue SNF placement
Assessment / Plan
Assessment / Plan
Assessment:
Fall at Home
Ambulatory Dysfunction
- Suspect that her current symptoms are multifactorial and related to chronic ambulatory dysfunction
- Lasix likely causing dizziness
- ? 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
- PT/OT - SNF recommended, patient agreeable
Orthostatic Hypotension
LE Edema
Weight Gain
- Acute increase in orthostatic symptoms following initiation of Lasix therapy. per patient, was told to take double dosing for a few days. Patient last dose 09/28 AM. Orthostatics here negative.
- Hold further diuretic for now.
- Echo: LVEF 55% ,mild LVH otherwise normal
- SCDs/compression stockings.
- Encourage regular PAP use (had been poorly compliant recently).
Essential HTN with urgency
- trial increase of BB and assess response
ASCVD
- Stable.�No chest pain, palpitations, etc.
- Given description of symptoms, monitor on tele to rule out any bradyarrhythmia, etc.
- Continue ASA, beta-blockade, etc.
DM-II
- Stable. Continue basal:bolus insulin regimen.
- Follow glucose and cover with SSI as needed.
- A1C 8.5%
Chronic Pain Syndrome
Spinal DDD
- Followed by Pain Management as an outpatient.
- Try to minimize narcotic medication as able as these are likely contributing to balance issues to some degree.
- Follow-up with Pain Management after discharge.
- PT/OT - SNF recommended
DAVID
- Patient reportedly not using PAP therapy recently.
- Was encouraged 08/26 to resume PAP use and would agree with this.
- Poorly treated DAVID certainly could be contributing to edema, fatigue and general weakness, etc.
Chronic Vertigo
- This is by history and has been attributed to patient's prior strokes seen on MRI.
- Patient does not describe vertiginous symptoms to me and current issues seem more c/w orthostasis / hypotension / vagal symptoms.
Frequent UTIs
- Would be cautious treating for UTI without active urinary symptoms.
- Seems clear that her balance issues, etc are not specifically related to UTIs.
DVT Prophylaxis:�Lovenox
Code Status:�Full
Anticipated Discharge: 24 - 48 hours
Subjective/Interval History
-
Date of Service: September 30, 2023
denies any new complaints at present but reports ongoing dizziness, likely deconditioning per patient/daughter admission and they agree to SNF
also concerned for elevated BP and agreeable to increase BB dose
Objective Data
-
Labs:
Laboratory Results
09/30/23
05:02
WBC 5.7
Hgb 13.7
Hct 41.7
Plt Count 141
Sodium 138
Potassium 3.6
Chloride 103
Carbon Dioxide 29
BUN 22 H
Creatinine 0.7
Glucose 160 H
Calcium 9.1
Vital Signs:
Vital Signs
Temp Pulse Resp BP Pulse Ox
98.4 F 67 18 146/69 92
09/30/23 11:55 09/30/23 11:55 09/30/23 11:55 09/30/23 11:55 09/30/23 11:55
I&O
09/29/23 09/30/23 10/01/23
06:59 06:59 06:59
Intake Total 1260 / 1260
Balance 1260 / 1260
Physical Exam
-
General: No Apparent Distress
HEENT: Normocephalic and Atraumatic
Respiratory: Negative Wheezes or Rales
Cardiac: Regular Rhythm and S1/S2
GI: Soft and Nontender
Genito-urinary: No Costovertebral Tender
Musculoskeletal: No Edema
Neuro: AO x 3
Psych: Calm
Data Reviewed
-
Total Time Spent with Patient (in minutes): 45
Labs: Labs Reviewed by me
[2023-09-30 15:55] VITALS: BP 126/55
[2023-09-30 16:39] LABS: Glucose - Point of Care 120 mg/dl (70-99)
[2023-09-30] MEDS: NOVOLOG FLEXPEN 18 UNITS SC (16:45)
--- NOTE | 2023-09-30 17:02 | CM ---
Spoke with patient in room.
PT OT said SNF.
Pt requested referral for [facility].
Referral in care port.
Will need auth .
PLAN To SNf after auth
[2023-09-30] MEDS: LOVENOX 40 MG SC (17:40)
[2023-09-30 19:00] VITALS: BP 126/59; BP 143/68; BP 160/68; PULSE 68; PULSE 70; PULSE 76
--- NOTE | 2023-09-30 19:30 | PTCARENOTE ---
Received patient this am AAOx3. OOB ambulating in room with assistance x1 with rolling walker. Tolerated diet well. Pt complained of lower back pain. Medicated with [facility] with relief. Pt complained that she was dizzy x1 for short period when in
bathroom. Dizziness then resolved. Made patient comfortable. Cont to assess patient status.
[2023-09-30] MEDS: ASPIR LOW (ENTERIC COATED) 81 MG PO (20:55)
[2023-09-30 21:18] LABS: Glucose - Point of Care 138 mg/dl (70-99)
[2023-09-30] MEDS: LANTUS 0.599999999999999978 UNITS SC (21:21)
[2023-09-30 23:31] VITALS: BP 130/76
[2023-10-01] VITALS (8 sets, daily range): BP systolic 133–151; BP diastolic 60–90; PULSE 65–74; O2SAT 94; BMI 32.8
[2023-10-01 07:43] LABS: Glucose - Point of Care 170 mg/dl (70-99)
[2023-10-01 07:50] LABS: Hematocrit 43.8 % (37.0-47.0); Hemoglobin 14.5 g/dL (12.0-16.0); Mean Corp Hgb Conc. 33.1 g/dL (33.0-37.0); Mean Corpuscular Hgb 27.3 pg (27.0-31.0); Mean Corpuscular Volume 82.3 fL (81.0-99.0); Mean Platelet Volume 10.5 fL (7.4-10.4); Platelet Count 170 10^3/uL (130-400); Red Blood Cell Count 5.32 10^6/uL (4.20-5.40); Red Cell Dist. Width 13.9 % (11.5-14.5); White Blood Cell Count 7.1 10^3/uL (4.8-10.8)
[2023-10-01 08:17] LABS: Blood Urea Nitrogen 24 mg/dl (7-17); Calcium 9.7 mg/dl (8.4-10.2); Carbon Dioxide 26 mmol/L (22-30); Chloride 103 mmol/L (98-107); Estimated Creatinine Clearance 76 ml/min; Glucose 187 mg/dl (70-99); Potassium 4.1 mmol/L (3.5-5.1); Sodium 139 mmol/L (135-145); eGFR > 60.00
[2023-10-01] MEDS: NOVOLOG FLEXPEN-MODERATE RESISTANCE 1 UNITS SC (09:14)
[2023-10-01] MEDS: CYMBALTA DELAYED RELEASE 30 MG PO ×2 (09:15→19:54)
[2023-10-01] MEDS: PROTONIX 40 MG PO (09:15)
[2023-10-01] MEDS: TOPROL XL 25 MG PO (09:15)
[2023-10-01] MEDS: NOVOLOG FLEXPEN 10 UNITS SC ×2 (09:15→11:49)
[2023-10-01] MEDS: NORCO 7.5/325 1 TABLET PO ×2 (10:42→22:02)
[2023-10-01 11:41] LABS: Glucose - Point of Care 137 mg/dl (70-99)
[2023-10-01] MEDS: VITAMIN C 1000 MG PO (11:48)
[2023-10-01] MEDS: NOVOLOG FLEXPEN-MODERATE RESISTANCE SC ×2 (11:49→17:25)
--- NOTE | 2023-10-01 12:24 | W.PN.HOSP.TC ---
Today's Communication/Plan
-
MRI brain, C-spine to further eval dizziness
Assessment / Plan
Assessment / Plan
Assessment:
Fall at Home
Ambulatory Dysfunction
- Suspect that her current symptoms are multifactorial and related to chronic ambulatory dysfunction
- Lasix likely causing dizziness
- ? 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
- check MRI brain/C-spine to rule out structural etiologies
- PT/OT - SNF recommended, patient agreeable
Orthostatic Hypotension
LE Edema
Weight Gain
- Acute increase in orthostatic symptoms following initiation of Lasix therapy. per patient, was told to take double dosing for a few days. Patient last dose 2 AM. Orthostatics here negative.
- Hold further diuretic for now.
- Echo: LVEF 55% ,mild LVH otherwise normal
- SCDs/compression stockings.
- Encourage regular PAP use (had been poorly compliant recently).
Essential HTN with urgency
- trial increase of BB and assess response
ASCVD
- Stable.�No chest pain, palpitations, etc.
- Given description of symptoms, monitor on tele to rule out any bradyarrhythmia, etc.
- Continue ASA, beta-blockade, etc.
DM-II
- Stable. Continue basal:bolus insulin regimen.
- Follow glucose and cover with SSI as needed.
- A1C 8.5%
Chronic Pain Syndrome
Spinal DDD
- Followed by Pain Management as an outpatient.
- Try to minimize narcotic medication as able as these are likely contributing to balance issues to some degree.
- Follow-up with Pain Management after discharge.
- PT/OT - SNF recommended
DAVID
- Patient reportedly not using PAP therapy recently.
- Was encouraged 08/26 to resume PAP use and would agree with this.
- Poorly treated DAVID certainly could be contributing to edema, fatigue and general weakness, etc.
Chronic Vertigo
- This is by history and has been attributed to patient's prior strokes seen on MRI.
- Patient does not describe vertiginous symptoms to me and current issues seem more c/w orthostasis / hypotension / vagal symptoms.
Frequent UTIs
- Would be cautious treating for UTI without active urinary symptoms.
- Seems clear that her balance issues, etc are not specifically related to UTIs.
DVT Prophylaxis:�Lovenox
Code Status:�Full
Anticipated Discharge: Within 24 hours
Subjective/Interval History
-
Date of Service: October 01, 2023
remains dizzy despite BP normalization
Objective Data
-
Labs:
Laboratory Results
10/01/23
06:44
WBC 7.1
Hgb 14.5
Hct 43.8
Plt Count 170 D
Sodium 139
Potassium 4.1
Chloride 103
Carbon Dioxide 26
BUN 24 H
Creatinine 0.7
Glucose 187 H
Calcium 9.7
Vital Signs:
Vital Signs
Temp Pulse Resp BP Pulse Ox
97.1 F 70 18 136/60 94
10/01/23 11:01 10/01/23 11:01 10/01/23 11:01 10/01/23 11:01 10/01/23 11:01
I&O
09/30/23 10/01/23 10/02/23
06:59 06:59 06:59
Intake Total 1260 / 1260 1860 / 1860
Balance 1260 / 1260 1860 / 1860
Physical Exam
-
General: No Apparent Distress
HEENT: Normocephalic and Atraumatic
Respiratory: Negative Wheezes or Rales
Cardiac: Regular Rhythm and S1/S2
GI: Soft and Nontender
Genito-urinary: No Costovertebral Tender
Musculoskeletal: No Edema
Neuro: AO x 3
Hematologic / Lymphatic: No Lymphadenopathy
Psych: Calm
Data Reviewed
-
Total Time Spent with Patient (in minutes): 45
Labs: Labs Reviewed by me
[2023-10-01] MEDS: ANTIVERT 25 MG PO ×2 (12:47→22:02)
--- NOTE | 2023-10-01 16:38 | CM ---
Referral placed in care port .
Carissa from [id number] is checking on bed availability.
Pt will have to bring on Gemtessa and Repatha.to rehab.
She is a [employer] patient she will need auth . Radha S to assist with auth.
Spoke with Bárbara hernandes and patient both agree with SNF.
PLAN To Snf after auth
[2023-10-01 17:07] LABS: Glucose - Point of Care 109 mg/dl (70-99)
[2023-10-01] MEDS: LOVENOX 40 MG SC (17:29)
[2023-10-01] MEDS: NOVOLOG FLEXPEN 18 UNITS SC (17:29)
[2023-10-01] MEDS: ASPIR LOW (ENTERIC COATED) 81 MG PO (19:54)
[2023-10-01 21:24] LABS: Glucose - Point of Care 129 mg/dl (70-99)
[2023-10-01] MEDS: LANTUS 0.599999999999999978 UNITS SC (22:01)
[2023-10-02 06:00] VITALS: BMI 32.3
[2023-10-02 07:00] VITALS: BP 131/56
[2023-10-02] MEDS: TOPROL XL 25 MG PO (08:26)
[2023-10-02] MEDS: CYMBALTA DELAYED RELEASE 30 MG PO (08:26)
[2023-10-02] MEDS: PROTONIX 40 MG PO (08:26)
[2023-10-02 09:02] LABS: Hematocrit 40.8 % (37.0-47.0); Hemoglobin 13.4 g/dL (12.0-16.0); Mean Corp Hgb Conc. 32.8 g/dL (33.0-37.0); Mean Corpuscular Hgb 27.1 pg (27.0-31.0); Mean Corpuscular Volume 82.4 fL (81.0-99.0); Mean Platelet Volume 10.2 fL (7.4-10.4); Platelet Count 133 10^3/uL (130-400); Red Blood Cell Count 4.95 10^6/uL (4.20-5.40); White Blood Cell Count 4.7 10^3/uL (4.8-10.8)
[2023-10-02 09:12] LABS: Glucose - Point of Care 121 mg/dl (70-99)
[2023-10-02] MEDS: NOVOLOG FLEXPEN-MODERATE RESISTANCE SC (09:27)
[2023-10-02 09:29] VITALS: BP 148/63; PULSE 72
[2023-10-02] MEDS: NOVOLOG FLEXPEN 10 UNITS SC ×2 (09:30→12:57)
[2023-10-02 09:44] LABS: Blood Urea Nitrogen 20 mg/dl (7-17); Calcium 9.1 mg/dl (8.4-10.2); Carbon Dioxide 28 mmol/L (22-30); Chloride 106 mmol/L (98-107); Estimated Creatinine Clearance 75 ml/min; Glucose 119 mg/dl (70-99); Sodium 137 mmol/L (135-145); eGFR > 60.00
--- NOTE | 2023-10-02 09:50 | W.PN.HOSP.TC ---
Addendum entered and electronically signed by Spencer Rubio MD 10/02/23 12:16:
More than 30 minutes spent in discharge including
Final examination of the patient
Summarizing hospital stay
Instructions for continuing care to all relevant caregivers
Preparation of discharge records, prescriptions, and referral forms
Total time spent (in minutes):41
Original Note:
Today's Communication/Plan
-
prn Meclizine
DC planning to SNF
Assessment / Plan
Assessment / Plan
Assessment:
Fall at Home
Ambulatory Dysfunction
- Suspect that her current symptoms are multifactorial and related to chronic ambulatory dysfunction
- Lasix likely causing dizziness
- ? 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
- MRI brain without acute changes
- MRI C-spine with chronic cervical stenosis, cord compression. She is followed by Dr. Homero Crocker [facility] and planning to have surgery next month.
- PT/OT - SNF recommended, patient agreeable
Orthostatic Hypotension
LE Edema
Weight Gain
- Acute increase in orthostatic symptoms following initiation of Lasix therapy. per patient, was told to take double dosing for a few days. Patient last dose 2/11 AM. Orthostatics here negative.
- at time of DC, make Lasix available prn
- Echo: LVEF 55% ,mild LVH otherwise normal
- SCDs/compression stockings.
- Encourage regular PAP use (had been poorly compliant recently).
Essential HTN with urgency
- continue Toprol XL 25mg
ASCVD
- Stable.�No chest pain, palpitations, etc.
- Given description of symptoms, monitor on tele to rule out any bradyarrhythmia, etc.
- Continue ASA, beta-blockade, etc.
DM-II
- Stable. Continue basal:bolus insulin regimen.
- Follow glucose and cover with SSI as needed.
- A1C 8.5%
Chronic Pain Syndrome
Spinal DDD
- Followed by Pain Management as an outpatient.
- Try to minimize narcotic medication as able as these are likely contributing to balance issues to some degree.
- Follow-up with Pain Management after discharge.
- PT/OT - SNF recommended
DAVID
- Patient reportedly not using PAP therapy recently.
- Was encouraged 08/26 to resume PAP use and would agree with this.
- Poorly treated DAVID certainly could be contributing to edema, fatigue and general weakness, etc.
Chronic Vertigo
- This is by history and has been attributed to patient's prior strokes seen on MRI.
- Patient does not describe vertiginous symptoms to me and current issues seem more c/w orthostasis / hypotension / vagal symptoms.
- prn Meclizine is helping
Frequent UTIs
- Would be cautious treating for UTI without active urinary symptoms.
- Seems clear that her balance issues, etc are not specifically related to UTIs.
DVT Prophylaxis:�Lovenox
Code Status:�Full
Anticipated Discharge: Within 24 hours
Subjective/Interval History
-
Date of Service: October 02, 2023
dizziness improved with Meclizine
Objective Data
-
Labs:
Laboratory Results
10/02/23
07:34
WBC 4.7 L
Hgb 13.4
Hct 40.8
Plt Count 133 D
Sodium 137
Potassium 4.0
Chloride 106
Carbon Dioxide 28
BUN 20 H
Creatinine 0.7
Glucose 119 H
Calcium 9.1
Vital Signs:
Vital Signs
Temp Pulse Resp BP Pulse Ox
98.1 F 69 18 131/56 94
10/02/23 07:00 10/02/23 08:26 10/02/23 07:00 10/02/23 08:26 10/02/23 07:00
I&O
10/01/23 10/02/23 10/03/23
06:59 06:59 06:59
Intake Total 1859
Balance 1859
Physical Exam
-
General: No Apparent Distress
HEENT: Normocephalic and Atraumatic
Respiratory: Negative Wheezes or Rales
Cardiac: Regular Rhythm and S1/S2
GI: Soft
Genito-urinary: No Costovertebral Tender
Musculoskeletal: No Edema
Neuro: AO x 3
Hematologic / Lymphatic: No Lymphadenopathy
Psych: Calm
Data Reviewed
-
Total Time Spent with Patient (in minutes): 45
Labs: Labs Reviewed by me
[2023-10-02 11:07] LABS: Glucose - Point of Care 199 mg/dl (70-99)
--- NOTE | 2023-10-02 12:05 | CM ---
indicated pt ready for discharge.
Carissa from [facility] is checking on bed availability.
Pt will have to bring on Gemtessa and Repatha.to rehab.
Radha Santoyo obtained [facility] for 7 days skilled level 1 10/02/23 to 10/08/23 reference # [id number] .
Spoke with Bárbara hernandes she will transport patient to [facility].
[facility]
report [phone]
fax [phone]
PLAN To [facility]
--- NOTE | 2023-10-02 12:15 | W.DS.TRANS ---
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
-
Discharge Instructions:
Discharge Diagnosis/Procedures vertigo/dizziness
Diet Diabetic, Carb Controlled
Activity As tolerated
Bathing Restrictions None
Other Services PT,OT
Instructions:
Stand-Alone Forms:
Changes to Home Medications: Yes
Discharge Medications:
DC Medications w/original date entered in [employer]
insulin aspart U-100 100 unit/mL (3 mL) subcutaneous pen (Novolog FlexPen U-100 Insulin aspart) 15 unit SC DAILY Diabetes 05/05/17
pantoprazole 40 mg tablet,delayed release 40 mg PO DAILY ##30 05/06/17
cyclobenzaprine 10 mg tablet 10 mg PO HS PRN Muscle spasms 10/29/22
duloxetine 30 mg capsule,delayed release 30 mg PO BID Mental Health/Anxiety 10/29/22
polyethylene glycol 3350 17 gram oral powder packet (Miralax) 17 g PO DAILYPRN PRN constipation 10/29/22
diphenhydramine HCl 25 mg capsule (Benadryl) 25 mg PO HS PRN Allergies/Post Nasal Drip 12/26/22
ascorbic acid (vitamin C) 1,000 mg tablet (Vitamin C) 1,000 mg PO NOON Supplement 05/15/23
aspirin 81 mg tablet,delayed release 81 mg PO HS Blood Clot Prevention/Tx 05/15/23
cholecalciferol (vitamin D3) 25 mcg (1,000 unit) tablet (Vitamin D3) 25 mcg PO NOON Supplement 05/15/23
faricimab-svoa 6 mg/0.05 mL intravitreal solution (Vabysmo) 6 mg intravitreal Q6W Eye Condition 05/15/23
ferrous sulfate 27 mg iron tablet 27 mg PO NOON Supplement 05/15/23
magnesium 200 mg tablet 200 mg PO BID Supplement 05/15/23
multivitamin 1 tab PO DAILY Supplement 05/15/23
omega 0-fxv-kuh-fish oil 1,000 mg (120 mg-180 mg) capsule (Fish Oil) 1 cap PO DAILY@1200 Stroke 05/15/23
evolocumab 140 mg/mL subcutaneous pen injector (Repatha SureClick) 140 mg SC Q2W High Cholesterol 09/28/23
hydrocodone 7.5 mg-acetaminophen 325 mg tablet 1 tab PO TID Pain 09/28/23
insulin aspart U-100 100 unit/mL (3 mL) subcutaneous pen (Novolog FlexPen U-100 Insulin aspart) 18 unit SC NOON Diabetes 09/28/23
insulin aspart U-100 100 unit/mL (3 mL) subcutaneous pen (Novolog FlexPen U-100 Insulin aspart) 27 unit SC QPM Diabetes 09/28/23
insulin glargine 100 unit/mL (3 mL) subcutaneous pen (Lantus Solostar U-100 Insulin) 60 unit SC HS Diabetes 09/28/23
methenamine hippurate 1 gram tablet (Hiprex) 1 g PO BID Urinary Issue 09/28/23
vibegron 75 mg tablet (Gemtesa) 75 mg PO QPM Urinary Issue 09/28/23
meclizine 25 mg tablet 25 mg PO Q8HPRN PRN dizziness #30 tabs 10/02/23
metoprolol succinate 25 mg tablet,extended release 24 hr 25 mg PO DAILY #30 tabs 10/02/23
Home Medication Changes
toprol increased
Pending Results: No
Total time spent discharging patient (in min): 41
[2023-10-02] MEDS: NOVOLOG FLEXPEN-MODERATE RESISTANCE 1 UNITS SC (12:57)
== END 2023-10-02 14:41 ==
LOC: 4 EAST ACU 20:26
PROVIDERS: Emergency Medicine; Nurse Practitioner; ADMITTING PHYSICIAN Hospitalist; ATTENDING PHYSICIAN Internal Medicine; EMERGENCY PHYSICIAN Emergency Medicine; FAMILY PHYSICIAN Internal Medicine Geriatric Medicine
DX: R42 Dizziness and giddiness (principal); R53.1 Weakness; R07.9 Chest pain, unspecified; R29.6 Repeated falls; E86.0 Dehydration; I16.0 Hypertensive urgency; I10 Essential (primary) hypertension; E11.9 Type 2 diabetes mellitus without complications; I25.10 Atherosclerotic heart disease of native coronary artery without angina pectoris; M79.89 Other specified soft tissue disorders; G47.33 Obstructive sleep apnea (adult) (pediatric); R63.5 Abnormal weight gain; G62.9 Polyneuropathy, unspecified; K21.9 Gastro-esophageal reflux disease without esophagitis; G89.4 Chronic pain syndrome; I95.1 Orthostatic hypotension; J30.89 Other allergic rhinitis; J30.2 Other seasonal allergic rhinitis; W19.XXXA Unspecified fall, initial encounter; Y93.9 Activity, unspecified; Y92.009 Unspecified place in unspecified non-institutional (private) residence as the place of occurrence of the external cause; Z91.81 History of falling; Z91.040 Latex allergy status; Z68.32 Body mass index [BMI] 32.0-32.9, adult; Z88.5 Allergy status to narcotic agent; Z88.0 Allergy status to penicillin; Z79.82 Long term (current) use of aspirin; Z95.5 Presence of coronary angioplasty implant and graft; Z79.4 Long term (current) use of insulin; Z88.2 Allergy status to sulfonamides; Z91.018 Allergy to other foods; Z87.440 Personal history of urinary (tract) infections; Z91.199 Patient's noncompliance with other medical treatment and regimen due to unspecified reason
CPT/HCPCS: 70450; 70551; 72141; 80048; 80053; 81003; 82962; 83036; 83735; 84439; 84443; 84484; 85025; 85027; 87070; 93005; 93306; 97116; 97163; 97167; 97530; 97535; 99285; G0378

== ENCOUNTER → 2023-10-06 10:30 | Outpatient (REF) | payer OTHER, SELFPAY ==
[2023-10-06 10:56] LABS: % Basophils 0.9 % (0-2); % Eosinophils 2.2 % (0-6); % Immature Granulocytes 0.4 % (0-0.5); % Lymphocytes 30.2 % (20.5-51.1); % Monocytes 7.8 % (1.7-9.3); % Neutrophils 58.5 % (42.2-75.2); Absolute Eosinophils 0.1 10^3/uL (0-0.7); Absolute Lymphocytes 1.4 10^3/uL (1.2-3.4); Absolute Monocytes 0.4 10^3/uL (0.1-0.6); Absolute Neutrophils 2.7 10^3/uL (1.4-6.5); Hematocrit 38.2 % (37.0-47.0); Hemoglobin 12.5 g/dL (12.0-16.0); Mean Corp Hgb Conc. 32.7 g/dL (33.0-37.0); Mean Corpuscular Hgb 27.1 pg (27.0-31.0); Mean Corpuscular Volume 82.9 fL (81.0-99.0); Mean Platelet Volume 10.9 fL (7.4-10.4); Nucleated Red Blood Cells % 0 %; Platelet Count 122 10^3/uL (130-400); Red Blood Cell Count 4.61 10^6/uL (4.20-5.40); Red Cell Dist. Width 13.8 % (11.5-14.5); White Blood Cell Count 4.6 10^3/uL (4.8-10.8)
[2023-10-06 10:58] LABS: Blood Urea Nitrogen 18 mg/dl (7-17); Calcium 9.3 mg/dl (8.4-10.2); Carbon Dioxide 31 mmol/L (22-30); Chloride 104 mmol/L (98-107); Glucose 131 mg/dl (70-99); Sodium 140 mmol/L (135-145); eGFR > 60.00
== END ==
LOC: OLABP 10:30
PROVIDERS: ATTENDING PHYSICIAN Family Medicine
DX: I25.10 Atherosclerotic heart disease of native coronary artery without angina pectoris (principal); E11.9 Type 2 diabetes mellitus without complications; I10 Essential (primary) hypertension; I95.1 Orthostatic hypotension; M62.59 Muscle wasting and atrophy, not elsewhere classified, multiple sites; G89.4 Chronic pain syndrome; G47.33 Obstructive sleep apnea (adult) (pediatric)
CPT/HCPCS: 36415; 80048; 85025

== ENCOUNTER → 2023-10-21 06:53 | Outpatient (REF) | payer OTHER, SELFPAY ==
[2023-10-21] MEDS: LEXISCAN 0.400000000000000022 MG IV (08:42)
[2023-10-21] MEDS: FLUSH (NSS) 1 FLUSH IV (08:43)
[2023-10-21] MEDS: AMINOPHYLLINE 75 MG IV (09:15)
== END ==
LOC: RCS 06:53
PROVIDERS: ATTENDING PHYSICIAN Internal Medicine Cardiovascular Disease; FAMILY PHYSICIAN Nurse Practitioner Primary Care
DX: Z01.818 Encounter for other preprocedural examination (principal); I25.10 Atherosclerotic heart disease of native coronary artery without angina pectoris
CPT/HCPCS: 78452; 93017; A9500; J2785

== ENCOUNTER 2023-12-12 09:56 | Outpatient (RCR) | payer OTHER, SELFPAY | END 2023-12-12 23:59 | disposition home or self-care (01) | LOC: RST 09:56 | PROVIDERS: ATTENDING PHYSICIAN Physical Medicine & Rehabilitation; PRIMARYCARE PHYSICIAN Internal Medicine Geriatric Medicine | DX: S14.109D Unspecified injury at unspecified level of cervical spinal cord, subsequent encounter (principal); R41.841 Cognitive communication deficit | CPT/HCPCS: 96125; 97010; 97110; 97112; 97116; 97129; 97130; 97140; 97162; 97167; 97530; 97535 ==

== ENCOUNTER → 2023-12-19 15:31 | Outpatient (REF) | payer OTHER, SELFPAY | LOC: HWWDC 15:31 | PROVIDERS: ATTENDING PHYSICIAN Internal Medicine Geriatric Medicine | DX: Z12.31 Encounter for screening mammogram for malignant neoplasm of breast (principal) | CPT/HCPCS: 77063; 77067 ==

== ENCOUNTER 2024-01-13 09:06 | Outpatient (RCR) | payer OTHER, SELFPAY | END 2024-01-13 23:59 | disposition home or self-care (01) | LOC: RST 09:06 | PROVIDERS: ATTENDING PHYSICIAN Physical Medicine & Rehabilitation; PRIMARYCARE PHYSICIAN Internal Medicine Geriatric Medicine | DX: S14.109D Unspecified injury at unspecified level of cervical spinal cord, subsequent encounter (principal); R41.841 Cognitive communication deficit; Z73.6 Limitation of activities due to disability | CPT/HCPCS: 97010; 97110; 97112; 97116; 97129; 97130; 97140; 97164; 97530; 97535 ==

== ENCOUNTER 2024-02-10 13:12 | Outpatient (RCR) | payer OTHER, SELFPAY | END 2024-02-10 23:59 | disposition home or self-care (01) | LOC: RST 13:12 | PROVIDERS: ATTENDING PHYSICIAN Physical Medicine & Rehabilitation; PRIMARYCARE PHYSICIAN Internal Medicine Geriatric Medicine | DX: S14.109D Unspecified injury at unspecified level of cervical spinal cord, subsequent encounter (principal); R41.841 Cognitive communication deficit; Z73.6 Limitation of activities due to disability; R26.2 Difficulty in walking, not elsewhere classified; M62.81 Muscle weakness (generalized); M43.22 Fusion of spine, cervical region | CPT/HCPCS: 97010; 97110; 97112; 97129; 97130; 97140; 97530; 97535 ==

== ENCOUNTER 2024-03-09 09:00 | Outpatient (RCR) | payer OTHER, SELFPAY | END 2024-03-09 23:59 | disposition home or self-care (01) | LOC: RST 09:00 | PROVIDERS: ATTENDING PHYSICIAN Physical Medicine & Rehabilitation; PRIMARYCARE PHYSICIAN Internal Medicine Geriatric Medicine | DX: S14.109D Unspecified injury at unspecified level of cervical spinal cord, subsequent encounter (principal); Z73.6 Limitation of activities due to disability; R41.841 Cognitive communication deficit; R26.2 Difficulty in walking, not elsewhere classified; M62.81 Muscle weakness (generalized); M43.22 Fusion of spine, cervical region | CPT/HCPCS: 97110; 97112; 97129; 97130; 97535 ==

== ENCOUNTER 2024-03-11 21:15 | Inpatient (IN) | payer OTHER, SELFPAY ==
[2024-03-11 14:03] VITALS: BP 157/68
[2024-03-11 14:19] LABS: % Basophils 0.2 % (0-2); % Eosinophils 0.2 % (0-6); % Immature Granulocytes 0.5 % (0-0.5); % Lymphocytes 9.7 % (20.5-51.1); % Monocytes 11.3 % (1.7-9.3); % Neutrophils 78.1 % (42.2-75.2); Absolute Lymphocytes 0.5 10^3/uL (1.2-3.4); Absolute Monocytes 0.6 10^3/uL (0.1-0.6); Absolute Neutrophils 4.4 10^3/uL (1.4-6.5); Hematocrit 39.8 % (37.0-47.0); Hemoglobin 13.5 g/dL (12.0-16.0); Mean Corp Hgb Conc. 33.9 g/dL (33.0-37.0); Mean Corpuscular Hgb 27.3 pg (27.0-31.0); Mean Corpuscular Volume 80.4 fL (81.0-99.0); Nucleated Red Blood Cells % 0 %; Platelet Count 110 10^3/uL (130-400); Red Blood Cell Count 4.95 10^6/uL (4.20-5.40); Red Cell Dist. Width 14.5 % (11.5-14.5); White Blood Cell Count 5.6 10^3/uL (4.8-10.8)
[2024-03-11 14:34] LABS: ALT (SGPT) 22 U/L (0-35); AST (SGOT) 28 U/L (14-36); Albumin 4.1 g/dl (3.5-5.0); Alkaline Phosphatase 100 U/L (38-126); Blood Urea Nitrogen 17 mg/dl (7-17); Calcium 9.6 mg/dl (8.4-10.2); Carbon Dioxide 25 mmol/L (22-30); Chloride 97 mmol/L (98-107); Glucose 242 mg/dl (70-99); Potassium 4.1 mmol/L (3.5-5.1); Sodium 131 mmol/L (135-145); Total Bilirubin 0.5 mg/dl (0.2-1.3); Total Protein 6.2 g/dl (6.3-8.2); eGFR > 60.00
[2024-03-11 14:48] LABS: Troponin I < 0.012 ng/ml
--- NOTE | 2024-03-11 15:30 | EDRN ---
Pt's daughter came to desk and requested a recliner for pt. This RN found one in back HW. Pt was max assist to chair and could barely walk. 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
[2024-03-11 16:40] VITALS: BP 167/56
[2024-03-11 16:42] VITALS: BMI 32.7
--- NOTE | 2024-03-11 16:50 | ED.GENMED ---
History of Present Illness
General
Chief Complaint: Chest Pain
Source: patient and family
Exam Limitations: none
Time Seen by Provider: 03/11/24 16:26
Nursing documentation reviewed up to this point in time: agreed with
History of Present Illness
History of Present Illness:
Patient is a 79-year-old female who presents to the ER complaining of weakness. Yesterday she also had some chest tightness. Symptoms of weakness started last night and into today. Daughter reports she cannot even walk on her own and use the
bathroom because of weakness. She has had achiness generalized weakness nasal congestion and cough.
Past History
Past History
ED Past Medical History: Asthma, CAD, GERD, HTN, Hypercholesterolemia, NIDDM and Other (Migraines, PNA, Macular degeneration, Rosacia, Iron def anemia, NIELSEN)
ED Past Surgical History: Cardiac (Cardiac catheterization stents), Gynecological (Hysterectomy), Orthopedic (Lumbar spine surgery) and Other (Cataracts,)
Patient has exhibited threatening behavior?: No
PSI?: No
Social History
Tobacco: Non-smoker
Alcohol: None
Drug: None
Personal:
Living: alone
Employment: Retired
Review of Systems
Review of Systems
Allergies reviewed?: Yes
All Other Systems: ROS reviewed and negative except as documented in HPI and ROS
Constitutional: Reports fatigue
EENT: Reports other (Nasal congestion)
Respiratory: Reports cough; Denies trouble breathing
Cardiac: Reports no symptoms
ABD/GI: Reports no symptoms
: Reports no symptoms
Musculoskeletal: Reports no symptoms
Skin: Reports no symptoms
Neurological: Reports no symptoms
Hematologic/Lymphatic: Reports no symptoms
Psychiatric: Reports no symptoms
Phy Exam
General Physical Exam
General Presentation: no apparent distress
General age: appears stated age
General Skin: warm and dry
General Habitus: elderly
General Mental: alert
General Hydration: appears well hydrated
Cardiovascular Exam
Cardiovascular Exam: regular rate/rhythm, no murmur and normal peripheral pulses
Pulmonary Exam
Pulmonary Exam: lungs clear and no respiratory distress
Neurological Exam
Neurological Exam: alert and oriented x3
Musculoskeletal Exam
Musculoskeletal Exam: full ROM
Skin Exam
Skin Exam: normal color and warm/dry
Psychiatric Exam
Psychiatric Exam: normal mood/affect
Scores
Heart Score for Chest Pain Patients
STEMI patient?: Not applicable
Course
Orders/Labs/Results
Orders:
Orders
03/11/24 13:57
Electrocardiogram (*1) Urgent
Reason for Study: Chest Pain
Cardiac Monitoring- Treatment ONCE
EKG- Treatment ONCE
IV Insert/Care/Rem.- Treatment PRN
O2 Therapy [RESP] Urgent
Titrate/Wean O2 to maintain O2 sat greater than (%): 90
Special Instructions: Maintain sats >/=90%
Pulse Ox/spot Check [RESP] Urgent
Quantity: 1
Special Instructions: ON ROOM AIR
03/11/24 14:09
Complete Blood Count/With Diff Urgent
Comprehensive Metabolic Panel Urgent
Troponin I Urgent
03/11/24 17:03
Urinalysis Reflex To Culture Urgent
Date Specimen was Collected: 03/11/24
Time Specimen was Collected: 17:01
Urine Microscopic Reflex Cult Urgent
Urine Culture Urgent
TIM Source: U
Specimen Description:
Date Specimen was Collected: 03/11/24
Time Specimen was Collected: 17:01
03/11/24 17:20
Chest [CR Chest - 2 Views ] Urgent
Comment:
Reason For Exam: cough
03/11/24 17:23
0.9% Sodium Chloride 1000 ml [Nss] 1,000 ml IV BOLUS
03/11/24 17:24
Acetaminophen [Tylenol] 650 mg PO NOW STA
03/11/24 18:18
0.9% Sodium Chloride 500 ml [Nss] 500 ml IV BOLUS
03/11/24 19:08
COVID-19 Antigen Urgent
Source: Nasal Swab
Abnormal Lab Results
03/11/24 03/11/24
14:09 17:03
MCV 80.4 L fL
(81.0-99.0)
Plt Count 110 L 10^3/uL
(130-400)
Absolute Lymphs (auto) 0.5 L 10^3/uL
(1.2-3.4)
Neutrophils % 78.1 H %
(42.2-75.2)
Lymphocytes % 9.7 L %
(20.5-51.1)
Monocytes % 11.3 H %
(1.7-9.3)
Sodium 131 L mmol/L
(135-145)
Chloride 97 L mmol/L
(98-107)
Glucose 242 H mg/dl
(70-99)
Total Protein 6.2 L g/dl
(6.3-8.2)
Ur Occult Blood Reflex Trace A
(Negative)
Urine Nitrite (Reflex) Positive A
(Negative)
Urine Bacteria (Reflex) Many A
(Negative)
03/11/24 14:09
03/11/24 14:09
Vital Signs
Initial and Last Documented VS:
Initial Vital Signs
Temp Pulse Resp BP Pulse Ox
99.3 F 79 18 157/68 93
03/11/24 14:03 03/11/24 14:03 03/11/24 14:03 03/11/24 14:03 03/11/24 14:03
Last Documented Vital Signs
Temp Pulse Resp BP Pulse Ox
100.3 F 72 14 165/61 92
03/11/24 18:46 03/11/24 18:34 03/11/24 18:34 03/11/24 18:00 03/11/24 17:15
MDM/Problems Addressed
Differential Diagnosis Includes:
Not limited to : viral syndrome pneumonia, dehydration, UTI COVID
MDM/Problems Addressed:
Patient is a 79-year-old female who presents with weakness. Weakness started last night. She also has felt mild discomfort in her chest last night. No chest pain here. Patient does complain of nasal congestion cough body aches. She has
low-grade temperature here refusing COVID testing. No other sick contacts at home. Lungs are clear not hypoxic chest x-ray negative. She had complained of chest pressure last night denies today no acute findings on EKG and troponin are negative
possible viral syndrome COVID considered however patient refusing COVID testing. Patient very weak here having difficulty even rolling in bed unable to stand and ambulate at home unable to stand and ambulate here. Likely viral syndrome COVID
possible. Patient's white count is normal sodium very minimally low at 131, normal renal function, no UTI symptoms. There are nitrates in her urine with 0-2 white blood cells we will hold off on treating. with weakness and not being able to
ambulate will adm
*Radiology
Radiology exam reviewed: radiology read reviewed
*Pulse Oximetry
Patient hypoxic: no
*EKG
Interpreted by ED Provider?: Yes
Interpretation: normal
Heart Rate: 74
Rate: normal
Rhythm: sinus
Ischemia: no ischemia
*Critical Care Note
Total Time (30-74mins, 75-104mins- exclusive of procedures): Not Applicable
ED Attending Note
-
Portions of this chart may have been created with voice recognition software.� Occasional wrong word or��sound alike� substitutions may have occurred due to the inherent limitations of voice recognition software.
Discharge Plan
Departure
Patient Disposition: Admit
Date of Disposition: 03/11/24
Time of Disposition: 19:36
Admit to: Med/Surg
Admit to doctor: hospitalist
Presentation/result/management discussed w/ accepting MD/DO: Hospitalist
Patient with high blood pressure during this ER visit?: Yes
Condition: Fair
Covid-19: Not Applicable
Discharge Problem:
Weakness, Cough
Prescriptions:
No Action
insulin aspart U-100 [Novolog FlexPen U-100 Insulin] 300 UNITS/3 ML insulin pen
15 unit SC DAILY
pantoprazole 40 MG tablet,delayed release (DR/EC)
40 mg PO DAILY Qty: 30 11RF
cyclobenzaprine 10 mg Tablet
10 mg PO HS PRN (Reason: Muscle spasms)
polyethylene glycol 3350 [Miralax] 17 gram Powder In Packet
17 g PO DAILYPRN PRN (Reason: constipation)
duloxetine 30 mg Capsule,Delayed Release(Dr/Ec)
30 mg PO BID
diphenhydramine HCl [Benadryl] 25 mg Capsule
25 mg PO HS PRN (Reason: Allergies/Post Nasal Drip)
multivitamin Tablet
1 tab PO DAILY
ascorbic acid (vitamin C) [Vitamin C] 1,000 mg Tablet
1,000 mg PO NOON
magnesium 200 mg Tablet
200 mg PO BID
cholecalciferol (vitamin D3) [Vitamin D3] 25 mcg (1,000 unit) Tablet
25 mcg PO NOON
ferrous sulfate 27 mg iron Tablet
27 mg PO NOON
omega 8-mgp-cou-fish oil [Fish Oil] 1,000 mg (120 mg-180 mg) Capsule
1 cap PO DAILY@1200
Vabysmo 6 mg/0.05 mL Solution
6 mg INTRAVITREAL Q6W
aspirin 81 MG tablet,delayed release (DR/EC)
81 mg PO HS
methenamine hippurate [Hiprex] 1 gram Tablet
1 g PO BID
insulin aspart U-100 [Novolog FlexPen U-100 Insulin] 100 unit/mL (3 mL) Insulin Pen
18 unit SC NOON
insulin aspart U-100 [Novolog FlexPen U-100 Insulin] 100 unit/mL (3 mL) Insulin Pen
27 unit SC QPM
insulin glargine [Lantus Solostar U-100 Insulin] 100 unit/mL (3 mL) Insulin Pen
60 unit SC HS
Repatha SureClick 140 mg/mL Pen Injector
140 mg SC Q2W
Gemtesa 75 mg Tablet
75 mg PO QPM
meclizine 25 mg Tablet
25 mg PO Q8HPRN PRN (Reason: dizziness) Qty: 30 0RF
metoprolol succinate 25 mg Tablet Extended Release 24 Hr
25 mg PO DAILY Qty: 30 0RF
hydrocodone-acetaminophen 7.5-325 mg tablet
1 tab PO TID Qty: 10 0RF
Referrals:
Jose Gagnon MD [Family Provider] -
Interventions
Interventions:
*Risk Screen - Suicide Last Done: 03/11/24 14:03
*General Assessment Last Done: 03/11/24 14:03
*Neglect/Abuse Screening Last Done: 03/11/24 14:03
ED- Fall Risk Assessment Last Done: 03/11/24 17:05
ED- Cardiac Assessment Last Done: 03/11/24 17:04
Discharge Date and Time
Print Language: KENYAN
[2024-03-11 17:00] VITALS: BP 148/60
[2024-03-11 17:25] LABS: Urine Albumin Trace (Neg - Trace); Urine Bilirubin Negative (Negative); Urine Character Slightly Cloudy (Clear); Urine Color Yellow; Urine Glucose Negative (Negative); Urine Ketone Negative (Negative); Urine Leukocyte Negative (Negative); Urine Nitrite Positive (Negative); Urine Occult Blood Trace (Negative); Urine Specific Gravity 1.015 (<1.030); Urine Urobilinogen Negative (Neg - 1+); Urine pH 6.5 (5.0-9.0)
[2024-03-11] MEDS: TYLENOL 650 MG PO (17:29)
[2024-03-11] MEDS: NSS 500 IV (17:30)
[2024-03-11 17:38] LABS: Urine Bacteria Many (Negative); Urine Red Blood Cell 0-2 /HPF (0-2); Urine White Cell 0-2 /HPF (0-5)
[2024-03-11 18:00] VITALS: BP 165/61
[2024-03-11 20:33] LABS: COVID-19 Antigen Positive (Negative)
--- NOTE | 2024-03-11 21:01 | HPS.HSE ---
Family Physician
-
Family Physician: Jose Gagnon
Chief Complaint
-
Fever, Weakness
History of Present Illness
Patient is a 79y F with PMH significant for DM-II, hypertension and prior cervical spine fusion who presents to ED complaining of fever, weakness and cough starting last PM. Patient has been in PT following cervical fusion done at [facility] in
October. She has been doing fairly well and has been ambulating without an assist device. Last PM, she began to feel generally poorly. She developed a hacking, non-productive cough that kept her up through the night. This AM, patient was noted to
be weak and diaphoretic. Family was unable to get her standing / ambulating. Patient complained of headache as well. She reports feeling dizzy when attempting to stand / ambulate.
They spoke with VN today and were advised to present to the ED for evaluation.
In the ED, patient is diaphoretic and acutely ill-appearing.
She recently traveled to visit with family ( half february) - but denies any known sick contacts, etc.
Medical History
Past Medical History
Past Medical History: Reports Other
Additional Past Medical History:
Hypertension
DM-II with Peripheral Neuropathy
GERD
ASCVD
Recurrent UTIs
DDD / Spinal Stenosis
Past Surgical History: Reports Other
Additional Past Surgical History:
PTCA with Stent
Lumbar Fusion
Cervical Fusion (10/2023)
Thyroid Biopsies (benign)
Cataracts
Social History
Tobacco: Non-smoker
Alcohol: None
Drug: None
Personal:
Family History
Family History: Not pertinent
Allergies / Home Medications
Allergies reflects when Allergies were last updated in [facility].
Home Medications with original date entered in [facility]
Allergy/Medication List:
Allergies
Allergy/AdvReac Type Severity Reaction Status Date / Time
house dust Allergy Shortness Verified 03/11/24 14:00
of Breath
hydromorphone [From Dilaudid] Allergy Nausea / Verified 03/11/24 14:00
Vomiting
latex Allergy Itching Verified 03/11/24 14:00
mold extracts Allergy throat Verified 03/11/24 14:00
closing
morphine [Morphine] Allergy Tongue Verified 03/11/24 14:00
Swelling
oxycodone [From Percocet] Allergy Nausea / Verified 03/11/24 14:00
Vomiting
Penicillins Allergy Rash Verified 03/11/24 14:00
propoxyphene Allergy Nausea / Verified 03/11/24 14:00
[From Darvocet-N] Vomiting
Sulfa (Sulfonamide Allergy Rash Verified 03/11/24 14:00
Antibiotics)
filiberto cheese Allergy throat Uncoded 09/14/23 13:56
closing
seasonal allergies Allergy runny nose Uncoded 09/14/23 13:56
Home Medications
pantoprazole 40 mg tablet,delayed release 40 mg PO DAILY ##30 05/06/17
duloxetine 30 mg capsule,delayed release 30 mg PO BID Mental Health/Anxiety 10/29/22
aspirin 81 mg tablet,delayed release 81 mg PO HS Blood Clot Prevention/Tx 05/15/23
magnesium 200 mg tablet 200 mg PO DAILY Supplement 05/15/23
multivitamin 1 tab PO DAILY Supplement 05/15/23
omega 1-uty-sve-fish oil 1,000 mg (120 mg-180 mg) capsule (Fish Oil) 1 cap PO DAILY@1200 Stroke 05/15/23
evolocumab 140 mg/mL subcutaneous pen injector (Repatha SureClick) 140 mg SC Q2W High Cholesterol 09/28/23
insulin glargine 100 unit/mL (3 mL) subcutaneous pen (Lantus Solostar U-100 Insulin) 56 unit SC HS Diabetes 09/28/23
methenamine hippurate 1 gram tablet (Hiprex) 1 g PO BID Urinary Issue 09/28/23
vibegron 75 mg tablet (Gemtesa) 75 mg PO QPM Urinary Issue 09/28/23
insulin aspart U-100 100 unit/mL (3 mL) subcutaneous pen (Novolog FlexPen U-100 Insulin aspart) 4 - 6 unit SC AC 03/11/24
lactobacillus combination no.4 3 billion cell capsule (Probiotic) 6,000 mmu cells PO DAILY 03/11/24
metoprolol succinate 25 mg tablet,extended release 24 hr 25 mg PO BID 03/11/24
Review of Systems
-
History Source: Patient and Family
A 12 point ROS was completed and negative except as noted: Yes
Constitutional: Reports Fever, Fatigue and Chills
EENT: Reports Sore Throat
Respiratory: Reports Cough; Denies Trouble Breathing
Cardiac: Denies Chest Pain or Palpitations
Abdomen/GI: Reports Nausea; Denies Abdominal Pain, Vomiting, Diarrhea or Constipated
: Denies Dysuria, Frequency or Flank Pain
Musculoskeletal: Denies Joint Pain or Edema
Neurological: Reports Dizzy, Headache and Weakness; Denies Numbness
Psych: Denies Depression or Anxiety
Physical Exam
Vital Signs
Vital Signs
Temp Pulse Resp BP Pulse Ox
100.3 F 72 14 165/61 92
03/11/24 18:46 03/11/24 18:34 03/11/24 18:34 03/11/24 18:00 03/11/24 17:15
Physical Exam
General: Other (79y F diaphoretic and ill-appearing.)
HEENT: Other (Dry MM. Neck supple.)
Respiratory: Other (Few bibasilar rales. No wheeze / rhonchi.)
Cardiac: S1/S2 and Regular Rhythm; No Murmur
GI: Soft, Non Tender, Non Distended and Normal Bowel Sounds
Musculoskeletal: No Clubbing, No Cyanosis and No Edema
Neuro: AO x 3
Laboratory Results
-
03/11/24 14:09
03/11/24 14:09
Laboratory Results
Total Bilirubin 0.5 mg/dl (0.2-1.3) 03/11/24 14:09
AST 28 U/L (14-36) 03/11/24 14:09
ALT 22 U/L (0-35) 03/11/24 14:09
Alkaline Phosphatase 100 U/L (38-126) 03/11/24 14:09
Troponin I < 0.012 ng/ml 03/11/24 14:09
Impression/Plan
-
A/P: Patient is a 79y F with PMH significant for ASCVD, hypertension and DM-II who presents to ED complaining of cough, weakness and fever since last PM.
COVID-19 Infection
Acute Hypoxemic Respiratory Insufficiency secondary to the above
- Admit for further evaluation and treatment.
- COVID positive in the ED this evening - with symptom onset approximately 24 hours ago.
- Mild hypoxemia with SpO2 consistently < 94%.
- Begin dexamethasone daily.
- Supportive care. Proper precautions. Supplemental O2, etc.
- Follow for clinical improvement.
DM-II
- Stable. Glucose recently elevated per patient - likely due to acute illness.
- Continue basal / bolus insulin regimen.
- SSI as needed.
- Update A1C.
Benign Hypertension
- Stable. Continue metoprolol with holding parameters.
ASCVD
- Stable. Continue ASA.
- Statin intolerant - on Repatha as an outpatient.
DDD
- s/p cervical spine fusion in October 2023.
- Doing well with PT - but continues in active therapy.
- PT / OT evaluations during stay.
DVT Prophylaxis: Lovenox
Code Status: Full
[2024-03-11] MEDS: DECADRON 6 MG PO (21:27)
[2024-03-11 22:23] LABS: Glucose - Point of Care 252 mg/dl (70-99)
[2024-03-11] MEDS: LANTUS 0.5 UNITS SC (22:40)
[2024-03-11] MEDS: NSS 1000 IV (22:41)
[2024-03-11 23:00] VITALS: BP 166/72; BMI 31.9
[2024-03-11] MEDS: TOPROL XL 25 MG PO (23:21)
[2024-03-11] MEDS: ASPIR LOW (ENTERIC COATED) 81 MG PO (23:22)
[2024-03-12] VITALS (8 sets, daily range): BP systolic 121–160; BP diastolic 59–75; PULSE 60–75; O2SAT 96; BMI 31.2
[2024-03-12 07:40] LABS: Hematocrit 40.8 % (37.0-47.0); Hemoglobin 13.6 g/dL (12.0-16.0); Mean Corp Hgb Conc. 33.3 g/dL (33.0-37.0); Mean Corpuscular Hgb 26.7 pg (27.0-31.0); Mean Corpuscular Volume 80.2 fL (81.0-99.0); Mean Platelet Volume 10.7 fL (7.4-10.4); Platelet Count 118 10^3/uL (130-400); Red Blood Cell Count 5.09 10^6/uL (4.20-5.40); Red Cell Dist. Width 14.5 % (11.5-14.5); White Blood Cell Count 4.6 10^3/uL (4.8-10.8)
[2024-03-12 08:01] LABS: Blood Urea Nitrogen 19 mg/dl (7-17); Carbon Dioxide 25 mmol/L (22-30); Chloride 101 mmol/L (98-107); Estimated Creatinine Clearance 88 ml/min; Glucose 357 mg/dl (70-99); Potassium 4.7 mmol/L (3.5-5.1); Sodium 134 mmol/L (135-145); eGFR > 60.00
[2024-03-12 08:09] LABS: Glucose - Point of Care 301 mg/dl (70-99)
[2024-03-12] MEDS: CYMBALTA DELAYED RELEASE 30 MG PO ×2 (09:19→20:42)
[2024-03-12] MEDS: PROTONIX 40 MG PO (09:19)
[2024-03-12] MEDS: NOVOLOG FLEXPEN-MODERATE RESISTANCE 7 UNITS SC (09:19)
[2024-03-12] MEDS: THERAGRAN 1 TABLET PO (09:19)
[2024-03-12] MEDS: DECADRON 6 MG PO (09:19)
[2024-03-12] MEDS: VISBIOME 1 CAP PO (09:19)
[2024-03-12] MEDS: MAG-TAB SR 84 MG PO (09:20)
[2024-03-12] MEDS: TOPROL XL 25 MG PO ×2 (09:20→20:42)
[2024-03-12] MEDS: HIPREX 1 GRAM PO (09:20)
--- NOTE | 2024-03-12 09:52 | W.PN.HOSP.TC ---
Documented by User: Dread Singh MD, Resident 03/12/24 11:52
Today's Communication/Plan
-
ID consult--Continue to monitor O2 sat and need for supplement O2-- d/c dexa--Might consider Paxlovid-- OT PT
Assessment / Plan
Assessment / Plan
Patient is a 79y F with PMH significant for ASCVD, essential hypertension and DM-II who presents to ED complaining of new-onset cough, weakness and fever.
COVID-19 Infection
Acute Hypoxemic Respiratory Insufficiency secondary to the above
- O2sat is 92% on room air. CXR normal.
- D/C dexamethasone.
- ID consult.
- Cont IVF and supportive care. Proper precautions.
DM-II
- Stable. Glucose elevated after dexa- dexa d/c ed.
- Continue basal / bolus insulin regimen.
- SSI as needed.
Essential Hypertension
- Stable. Continue metoprolol with holding parameters.
ASCVD
- Stable. Continue ASA.
- Statin intolerant - on Repatha as an outpatient.
DDD
- s/p cervical spine fusion in October 2023.
- Doing well with PT - is in active therapy.
- PT / OT evaluations ongoing during stay.
DVT Prophylaxis: Lovenox
Code Status: Full
Anticipated Discharge: Within 24 hours
Subjective/Interval History
-
Date of Service: March 12, 2024
Patient is generally feeling good. Mentions she has not yet got out of bed but still feels she is very weak. Has mild pleuritic pain. Mention she did cough a lot last night. Would like medical team to discuss treatment changes (if any) with
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
Objective Data
-
Labs:
Laboratory Results
03/12/24
07:00
WBC 4.6 L
Hgb 13.6
Hct 40.8
Plt Count 118 L
Sodium 134 L
Potassium 4.7
Chloride 101
Carbon Dioxide 25
BUN 19 H
Creatinine 0.6
Glucose 357 H
Calcium 9.0
Vital Signs:
Vital Signs
Temp Pulse Resp BP Pulse Ox
98.0 F 66 18 160/71 92
03/12/24 07:40 03/12/24 07:40 03/12/24 07:40 03/12/24 09:20 03/12/24 07:40
I&O
03/11/24 03/12/24 03/13/24
06:59 06:59 06:59
Intake Total 1520 / 1520
Output Total 1950 / 1950
Balance -430 / -430
Review of Systems
-
History Source: Patient
All other systems: Reviewed and negative
Constitutional: Reports Weakness
Respiratory: Reports Cough and Pleurisy
Abdomen/GI: Reports No Symptoms
Musculoskeletal: Reports Muscle Weakness
Allergy / Immunology: Reports Other (seasonal allergy)
Physical Exam
-
General: Well Developed and No Apparent Distress
HEENT: Normocephalic and Atraumatic
Respiratory: Clear to Auscultation
Cardiac: Regular Rhythm and S1/S2
GI: Nontender, Nondistended and Normal Bowel Sounds
Musculoskeletal: No Edema
Skin: Warm
Neuro: Awake, Alert, Oriented and AO x 3
Psych: Calm
Data Reviewed
-
Total Time Spent with Patient (in minutes): 15

Documented by User: Salvatore Kerr MD 03/12/24 14:53
Assessment / Plan
Assessment / Plan
Patient is a 79y F with PMH significant for ASCVD, essential hypertension and DM-II who presents to ED complaining of new-onset cough, weakness and fever.
COVID-19 Infection
Transient hypoxia in ER ;currently none
- O2sat is 92% on room air. CXR normal.
- D/C dexamethasone.
- Cont IVF and supportive care. Proper precautions.
DM-II
- Stable. Glucose elevated after dexa- dexa d/c ed.
- Continue basal / bolus insulin regimen.
- SSI as needed.
Essential Hypertension
- Stable. Continue metoprolol with holding parameters.
ASCVD
- Stable. Continue ASA.
- Statin intolerant - on Repatha as an outpatient.
DDD
- s/p cervical spine fusion in October 2023.
- Doing well with PT - is in active therapy.
- PT / OT evaluations ongoing during stay.
DVT Prophylaxis: Lovenox
Code Status: Full
[2024-03-12] MEDS: NSS IV (11:46)
[2024-03-12 11:53] LABS: Glucose - Point of Care 460 mg/dl (70-99)
--- NOTE | 2024-03-12 12:05 | PTCARENOTE ---
Addendum entered by Clara Soto RN 03/12/24 18:47:
Ivermectin
Addendum entered by Clara Soto RN 03/12/24 12:12:
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 nurse educated pt family member on importance of not giving patients medications
outside of prescribed orders.
Original Note:
per emely daughter in law at bedside gave patient '3 yellow pills' from her purse. Md made aware.
[2024-03-12 12:40] LABS: Glucose 499 mg/dl (70-99)
[2024-03-12] MEDS: NOVOLOG FLEXPEN-MODERATE RESISTANCE SC ×2 (12:45→17:23)
[2024-03-12] MEDS: NOVOLOG FLEXPEN-MODERATE RESISTANCE 11 UNITS SC (12:48)
--- NOTE | 2024-03-12 13:58 | CM ---
CM following re: discharge planning.
Reviewed pt's chart, met with pt and pt's daughter in law at bedside.
Pt is a 79 year old female, admitted with primary dx of Hypoxemic respiratory insufficiency/COVID+.
Pt reports she lives with son, daughter in law and their 5 children in a 2SH, 4 steps to enter. 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 Pt expressed her desire to return back home with [facility] and
family support.
PT and OT evaluations noted - SNF level of care recommended. CM discussed it with the pt, pt expressed disappointed feelings stating she preferred to return back home with [facility]N and she asked to have some time to discuss her plan with the family. A
list of SNFs provided to the pt and pt is aware that not every SNF accept patients with COVID and pt stated she still wants to return back home and will confirm it with the family.
A referral to [facility] made in case pt returns home.
PCP: Chris Gagnon
Pharmacy: [facility].
D/C plan: home with [facility] vs SNF. Pt decides.
CM will follow with discharge kami updates as hospitalization progresses
--- NOTE | 2024-03-12 14:22 | VNURNOTE ---
Chart reviewed. SNF recommended by therapy v. pt request for VN. Patient has had [facility] in the past. Will watch for home 02 needs and hospitalization course. Referral placed in [facility], liaison will call [id number] once more definitive plan
is in place.
--- NOTE | 2024-03-12 14:49 | W.PN.UPDATE ---
Update Note
Progress Note Update
I saw and evaluated the patient. I reviewed the resident�s note and agree with findings and plan as documented in the resident�s note.
Patient presented with primary symptom of feeling weak, fatigued. She has no fevers here no chills. She denies any sore throat. She thinks she had a cough but not much productive. Denies any shortness of breath or chest pain.
She is not hypoxic today she is on room air comfortable. Chest sounds clear without any added sounds. Chest x-ray shows no evidence of pneumonia.
Mild case of COVID-19 infection. She was infected once before. She did not get a primary vaccination or boosters for COVID-19 infection.
No indication for steroids. Explored the Paxlovid for symptom progression especially in her age group with diabetes mellitus. Patient and the daughter who is at the bedside after understanding the benefit and the risk declined the Paxlovid.Hold ID
consult.
The daughter asked me about use of ivermectin ;i said no adequate evidence to use for it and not an indication for use in COVID per guidelines.
Suspect uncontrolled hyperglycemia is probably the steroid she received yesterday and today. Hold further steroids. Check a hemoglobin A1c. Continue with her home diabetic regimen including insulin and add moderate sliding scale for today.
Will follow PT and OT recommendations and start a discharge plan. Hopefully home tomorrow with services if stable versus rehab.
Total time spent on today's encounter was 52 minutes which included time spent in counseling the patient/family regarding diagnosis and treatment plan as listed above, goals of care, and symptom management. Case was discussed with nursing staff ,
and care coordinators/case management. All labs and imaging personally reviewed by me. Remainder the time spent in detailed review of previous records, lab data, imaging, and other medical provider documentation.
--- NOTE | 2024-03-12 15:55 | PTCARENOTE ---
1130 accucheck done at bedside by pct which resulted at [facility]. came back in the system at 460, MD and resident made aware and a stat glucose was checked. stat came back at 490 and per protocol sliding scale parameter was given. pt asymptomatic to
hyperglycemia. decadron discontinued this morning. pt states her sugars have been running in the 200's at home this week but usually sits around the 150's for her baseline. made aware.
[2024-03-12 16:10] LABS: Glucose - Point of Care 417 mg/dl (70-99)
[2024-03-12 16:25] LABS: Glycohemoglobin (HgbA1c) 8.5 % (4.0-5.6)
[2024-03-12] MEDS: NOVOLOG FLEXPEN 16 UNITS SC (17:29)
[2024-03-12] MEDS: LOVENOX 40 MG SC (17:30)
[2024-03-12 17:36] LABS: Glucose 461 mg/dl (70-99)
[2024-03-12 19:39] LABS: Glucose - Point of Care 372 mg/dl (70-99)
[2024-03-12] MEDS: DESENEX/MITRAZOL/ZEASORB 1 APPLIC TOPICAL (20:43)
[2024-03-12 21:48] LABS: Glucose - Point of Care 402 mg/dl (70-99)
[2024-03-12 22:24] LABS: Glucose 383 mg/dl (70-99)
[2024-03-12] MEDS: NOVOLOG FLEXPEN 9 UNITS SC (22:40)
[2024-03-12] MEDS: LANTUS 0.5 UNITS SC (22:41)
[2024-03-12] MEDS: ASPIR LOW (ENTERIC COATED) 81 MG PO (22:42)
[2024-03-13 01:08] LABS: Glucose - Point of Care 320 mg/dl (70-99)
[2024-03-13] MEDS: NOVOLOG FLEXPEN 7 UNITS SC (01:19)
[2024-03-13 05:28] VITALS: BMI 31.1
[2024-03-13 07:00] VITALS: BP 132/70; BP 138/65; BP 165/68; PULSE 54; PULSE 56; PULSE 57
[2024-03-13 07:36] LABS: Glucose - Point of Care 292 mg/dl (70-99)
[2024-03-13] MEDS: CYMBALTA DELAYED RELEASE 30 MG PO ×2 (09:18→20:06)
[2024-03-13] MEDS: MAG-TAB SR 84 MG PO (09:18)
[2024-03-13] MEDS: PROTONIX 40 MG PO (09:18)
[2024-03-13] MEDS: VISBIOME 1 CAP PO (09:18)
[2024-03-13] MEDS: THERAGRAN 1 TABLET PO (09:18)
[2024-03-13] MEDS: TOPROL XL 25 MG PO ×2 (09:19→20:07)
[2024-03-13] MEDS: DESENEX/MITRAZOL/ZEASORB 1 APPLIC TOPICAL ×2 (09:24→20:14)
[2024-03-13] MEDS: NOVOLOG FLEXPEN-MODERATE RESISTANCE 5 UNITS SC (09:24)
--- NOTE | 2024-03-13 11:31 | W.PN.HOSP.TC ---
Addendum entered and electronically signed by Salvatore Kerr MD 03/13/24 13:14:
I saw and evaluated the patient. I reviewed the resident�s note and agree with findings and plan as documented in the resident�s note.
Original Note:
Documented by User: Dread Singh MD, Resident 03/13/24 11:42
Today's Communication/Plan
-
Continue ceftriaxone
Assessment / Plan
Assessment / Plan
Patient is a 79y F with PMH significant for ASCVD, essential hypertension and DM-II who presents to ED complaining of new-onset cough, weakness and fever.
COVID-19 Infection
Transient hypoxia in ER ;currently none
- O2sat is 92% on room air. CXR normal. Not a candidate for Paxlovid.
- D/C dexamethasone.
- Cont IVF and supportive care. Proper precautions.
DM-II
- Blood glucose levels elevated. dexa d/c ed.
- Hemoglobin A1c: 8.5
- Stat glucose persistently >300 yesterday--received 16 units NovoLog once--current Accu-Chek stands at 292
- Placed on moderate dose SSI. Continues to receive 50 units Lantus
Essential Hypertension
- Stable. Continue metoprolol with holding parameters.
ASCVD
- Stable. Continue ASA.
- Statin intolerant - on Repatha as an outpatient.
DDD
- s/p cervical spine fusion in October 2023.
- Doing well with PT - is in active therapy.
- PT / OT evaluations ongoing during stay.
History of recurrent UTI:
U/C (sent on 03/11/24): Positive for E. coli
- Started ceftriaxone 1 mg daily
DVT Prophylaxis: Lovenox
Code Status: Full
Anticipated Discharge: Within 24 hours
Subjective/Interval History
-
Date of Service: March 13, 2024
Objective Data
-
Labs:
03/11/24 17:03 Urine Culture - Final
Urine Escherichia coli
Vital Signs:
Vital Signs
Temp Pulse Resp BP Pulse Ox
98.0 F 56 14 165/68 96
03/13/24 07:00 03/13/24 09:19 03/13/24 07:00 03/13/24 09:19 03/13/24 07:00
I&O
03/12/24 03/13/24 03/14/24
06:59 06:59 06:59
Intake Total 1520 / 1520 2600 / 2600
Output Total 1950 / 1949
Balance -430 / -430 2600 / 2600
Physical Exam
-
General: Well Developed and No Apparent Distress
HEENT: Normocephalic and Atraumatic
Respiratory: Clear to Auscultation
Cardiac: Regular Rhythm and S1/S2
GI: Nontender, Nondistended and Normal Bowel Sounds
Genito-urinary: No Costovertebral Tender
Musculoskeletal: No Edema
Skin: Warm and Dry
Neuro: Awake, Alert, Oriented and AO x 3
Hematologic / Lymphatic: No Lymphadenopathy
Psych: Calm
Data Reviewed
-
Total Time Spent with Patient (in minutes): 15

Documented by User: Salvatore Kerr MD 03/13/24 13:13
Assessment / Plan
Assessment / Plan
Patient is a 79y F with PMH significant for ASCVD, essential hypertension and DM-II who presents to ED complaining of new-onset cough, weakness and fever.
COVID-19 Infection mild
Transient hypoxia in ER ;currently none
- O2sat is 92% on room air. CXR normal. Pt/fmaily declined Paxlovid.
- No indication for dexamethasone.
- CW supportive care. Proper precautions.
- Antitussives
DM-II
- Blood glucose levels elevated. dexa d/c ed.
- Hemoglobin A1c: 8.5
- Placed on moderate dose SSI. Continues to receive 50 units Lantus
Essential Hypertension
- Stable. Continue metoprolol with holding parameters.
ASCVD
- Stable. Continue ASA.
- Statin intolerant - on Repatha as an outpatient.
DDD
- s/p cervical spine fusion in October 2023.
- Doing well with PT - is in active therapy.
- PT / OT evaluations ongoing during stay.
History of recurrent UTI:
U/C (sent on 03/11/24): Positive for E. coli
- Started ceftriaxone 1 mg daily
DVT Prophylaxis: Lovenox
Code Status: Full
PT recs SNF
CM to look into disposition to rehab.
Medically stable for DC .
[2024-03-13] MEDS: TYLENOL 650 MG PO ×2 (11:52→20:17)
[2024-03-13] MEDS: ROCEPHIN 1000 MG IV (11:55)
[2024-03-13] MEDS: STERILE WATER FOR INJECTION 10 ML IV (11:56)
[2024-03-13 12:05] LABS: Glucose - Point of Care 344 mg/dl (70-99)
[2024-03-13] MEDS: NOVOLOG FLEXPEN-MODERATE RESISTANCE 7 UNITS SC (12:08)
[2024-03-13 15:00] VITALS: BP 147/62
[2024-03-13] MEDS: LOVENOX 40 MG SC (17:45)
[2024-03-13] MEDS: NOVOLOG FLEXPEN-LOW RESISTANCE 3 UNITS SC (17:46)
[2024-03-13 17:50] LABS: Glucose - Point of Care 324 mg/dl (70-99)
[2024-03-13] MEDS: NOVOLOG vial 27 UNITS SC (17:54)
[2024-03-13 19:52] VITALS: BP 135/68; BP 139/67; BP 141/62; PULSE 61; PULSE 68; PULSE 71
[2024-03-13 21:55] LABS: Glucose - Point of Care 429 mg/dl (70-99)
[2024-03-13 22:31] LABS: Glucose 413 mg/dl (70-99)
[2024-03-13] MEDS: LANTUS 0.5 UNITS SC (22:50)
[2024-03-13] MEDS: NOVOLOG FLEXPEN 11 UNITS SC (22:51)
[2024-03-13] MEDS: ASPIR LOW (ENTERIC COATED) 81 MG PO (22:51)
[2024-03-13 23:21] VITALS: BP 136/57
[2024-03-14 01:00] LABS: Glucose - Point of Care 306 mg/dl (70-99)
--- NOTE | 2024-03-14 01:13 | PTCARENOTE ---
Patient's repeat accucheck after 11 Units Novolog coverage and 50 Units Lantus went from 413 to 306. FERNANDO Wang advised to watch for now.
[2024-03-14 05:18] VITALS: BMI 31.0
[2024-03-14 07:33] VITALS: BP 145/59
[2024-03-14] MEDS: NOVOLOG FLEXPEN 15 UNITS SC (07:36)
[2024-03-14] MEDS: CYMBALTA DELAYED RELEASE 30 MG PO ×2 (07:36→21:16)
[2024-03-14 07:37] LABS: Glucose - Point of Care 191 mg/dl (70-99)
[2024-03-14] MEDS: NOVOLOG FLEXPEN-LOW RESISTANCE 1 UNITS SC ×3 (07:37→17:48)
[2024-03-14] MEDS: VISBIOME 1 CAP PO (07:37)
[2024-03-14] MEDS: TOPROL XL 25 MG PO ×2 (07:37→21:16)
[2024-03-14] MEDS: THERAGRAN 1 TABLET PO (07:37)
[2024-03-14] MEDS: PROTONIX 40 MG PO (07:38)
[2024-03-14] MEDS: DESENEX/MITRAZOL/ZEASORB 1 APPLIC TOPICAL ×2 (07:38→21:18)
[2024-03-14] MEDS: MAG-TAB SR 84 MG PO (07:38)
[2024-03-14 08:15] VITALS: BP 139/61; BP 144/60; BP 145/59; PULSE 54; PULSE 57; PULSE 59
[2024-03-14 09:16] LABS: Glucose 267 mg/dl (70-99)
--- NOTE | 2024-03-14 09:56 | W.PN.HOSP.TC ---
Today's Communication/Plan
-
Plan for discharge today--CM is following case for discharge to SNF
Assessment / Plan
Assessment / Plan
Patient is a 79y F with PMH significant for ASCVD, essential hypertension and DM-II who presents to ED complaining of new-onset cough, weakness and fever.
COVID-19 Infection mild
Transient hypoxia in ER ;currently none
- O2sat is 95% on room air. CXR normal. Pt/fmaily declined Paxlovid.
- No indication for dexamethasone.
- CW supportive care. Proper precautions.
- Antitussives
DM-II
- Blood glucose levels improved. Current BG is 267.
- Hemoglobin A1c: 8.5
- Placed on moderate dose SSI. Continues to receive 50 units Lantus
Essential Hypertension
- Stable. Continue metoprolol with holding parameters.
ASCVD
- Stable. Continue ASA.
- Statin intolerant - on Repatha as an outpatient.
DDD
- s/p cervical spine fusion in October 2023.
- Doing well with PT - is in active therapy.
- PT / OT evaluations ongoing during stay.
History of recurrent UTI:
U/C (sent on 03/11/24): Positive for E. coli
-Continue ceftriaxone 1g daily
DVT Prophylaxis: Lovenox
Code Status: Full
PT recs SNF
CM to look into disposition to rehab.
Medically stable for DC .
Anticipated Discharge: Within 24 hours
Subjective/Interval History
-
Date of Service: March 14, 2024
Patient is feeling good. Blood glucose is controlled. No medical complaints from patient.
Objective Data
-
Labs:
Laboratory Results
03/13/24 03/14/24
22:03 08:33
Glucose 413 H 267 H
Vital Signs:
Vital Signs
Temp Pulse Resp BP Pulse Ox
97.7 F 59 16 145/59 95
03/14/24 07:33 03/14/24 07:37 03/14/24 07:33 03/14/24 07:37 03/14/24 07:33
I&O
03/13/24 03/14/24 03/15/24
06:59 06:59 06:59
Intake Total 2600 / 2600 1440 / 1440
Balance 2600 / 2600 1440 / 1440
Review of Systems
-
History Source: Patient
All other systems: Reviewed and negative
Physical Exam
-
General: Well Developed and No Apparent Distress
Respiratory: Clear to Auscultation
Cardiac: Regular Rhythm and S1/S2
GI: Nontender, Nondistended and Normal Bowel Sounds
Musculoskeletal: No Edema
Neuro: Awake, Alert, Oriented and AO x 3
Psych: Calm
[2024-03-14 10:12] VITALS: BP 151/66; PULSE 60; O2SAT 95
--- NOTE | 2024-03-14 10:26 | W.PN.UPDATE ---
Update Note
Progress Note Update
I saw and evaluated the patient. I reviewed the resident�s note and agree with findings and plan as documented in the resident�s note.
Patient is feeling improved from a cough standpoint. No shortness of breath. No fever or chills. Chest is clear without wheeze or crackles. Not hypoxic.
Appetite is good.
Denies any urinary symptoms of frequency or dysuria. Urine culture with E. coli noted-sensitivities pending.
With mild COVID-19 infection without progression of symptoms and resolved urinary symptoms antibiotics patient is stable for discharge.
Improved blood sugars with the addition of her nutritional insulin.
PT to reevaluate regarding disposition.
[2024-03-14 12:25] LABS: Glucose - Point of Care 177 mg/dl (70-99)
[2024-03-14] MEDS: ROCEPHIN 1000 MG IV (12:35)
[2024-03-14] MEDS: NOVOLOG FLEXPEN 18 UNITS SC (12:36)
[2024-03-14] MEDS: STERILE WATER FOR INJECTION 10 ML IV (12:36)
--- NOTE | 2024-03-14 15:19 | CM ---
Patient with Dx COVID-19 Infection. Room air. Receiving IV Abx. PT recommends HH. OT recommends skilled rehab.
Spoke with Bárbara; patient's daughter in law/POA; discussed patient's current functional status and PT/OT recommendations. Bárbaar is aware of the plan for d/c tomorrow and feels patient can return home with [facility]. IMM completed. Bárbara will resume
assisting the patient at home, and doesn't feel the need to hire an additional caregiver.
Plan home tomorrow with [facility], with family.
[2024-03-14 16:00] VITALS: BP 130/62
[2024-03-14 16:56] LABS: Glucose - Point of Care 190 mg/dl (70-99)
[2024-03-14] MEDS: LOVENOX 40 MG SC (17:48)
[2024-03-14] MEDS: NOVOLOG FLEXPEN 27 UNITS SC (17:48)
[2024-03-14 21:15] LABS: Glucose - Point of Care 271 mg/dl (70-99)
[2024-03-14] MEDS: ASPIR LOW (ENTERIC COATED) 81 MG PO (21:16)
[2024-03-14] MEDS: LANTUS 0.5 UNITS SC (21:17)
[2024-03-14 23:37] VITALS: BP 158/84; BP 161/72; BP 168/89; PULSE 64; PULSE 79; PULSE 84
[2024-03-15] MEDS: TYLENOL 650 MG PO ×2 (00:18→09:53)
[2024-03-15 05:22] VITALS: BMI 31.5
[2024-03-15 07:30] VITALS: BP 141/54
[2024-03-15 07:41] LABS: Glucose - Point of Care 189 mg/dl (70-99)
[2024-03-15] MEDS: NOVOLOG FLEXPEN 15 UNITS SC (09:00)
[2024-03-15] MEDS: NOVOLOG FLEXPEN-LOW RESISTANCE 1 UNITS SC (09:01)
[2024-03-15] MEDS: PROTONIX 40 MG PO (09:48)
[2024-03-15] MEDS: TOPROL XL 25 MG PO (09:54)
[2024-03-15] MEDS: MAG-TAB SR 84 MG PO (09:55)
[2024-03-15] MEDS: DESENEX/MITRAZOL/ZEASORB 1 APPLIC TOPICAL (09:55)
[2024-03-15] MEDS: VISBIOME 1 CAP PO (09:55)
[2024-03-15] MEDS: CYMBALTA DELAYED RELEASE 30 MG PO (09:55)
[2024-03-15] MEDS: THERAGRAN 1 TABLET PO (09:55)
--- NOTE | 2024-03-15 10:07 | VNURNOTE ---
Called POA daughter in law Bárbara to explain [facility], answer any questions. No answer, left message
--- NOTE | 2024-03-15 10:11 | VNURNOTE ---
Spoke with daughter in law Bárbara. Explained [facility] services, purpose. Nursing will reach out within a few days after discharge to schedule visit. Confirmed best number to reach (Bárbara's number). Referral already accepted in [facility].
[2024-03-15] MEDS: STERILE WATER FOR INJECTION 10 ML IV (12:50)
[2024-03-15] MEDS: ROCEPHIN 1000 MG IV (12:50)
--- NOTE | 2024-03-15 12:58 | W.PN.HOSP.TC ---
Addendum entered and electronically signed by Sheri Guillen MD 03/15/24 16:30:
I saw and evaluated the patient independently. I reviewed the resident�s note and agree with findings and plan as documented by Dr. Sanchez.
GENERAL: well developed, well nourished, female in no apparent distress
HEENT: NC/AT--no O2 requirements
HEART: regular rate and rhythm, +S1, +S2
LUNGS : raspy breath sounds bilaterally
ABDOM: soft, nontender, nondistended, + bowel sounds
EXT: no cyanosis, clubbing, or edema
NEUROLOGIC: grossly intact
History of recurrent UTI--now with E. coli UTI--Ceftriaxone switched to cephalexin 500 mg PO TID to take at home after discharge x 3 days
COVID-19 Infection mild--Transient hypoxia in ER--currently none - O2sat is 95% on room air. CXR normal. Pt/family declined Paxlovid--No indication for dexamethasone-- Patient has residual cough and is being discharged on Robitussin and Tessalon
DM-II - Blood glucose levels improved. - Hemoglobin A1c: 8.5 - Placed on moderate dose SSI. Continues to receive 50 units Lantus - Discharging patient on prior home insulin dosing
Essential Hypertension- Stable. Continue metoprolol with holding parameters - Will continue metoprolol after discharge.
ASCVD - Stable. Continue ASA after discharge - Statin intolerant - on Repatha as an outpatient.
DDD - s/p cervical spine fusion in October 2023. - Doing well with PT - is in active therapy - PT/OT evaluations ongoing during stay - Pt on lidocaine patch and over the counter pain medication at home
DVT Prophylaxis: Lovenox
Code Status: Full
D/C with [facility]
Original Note:
Today's Communication/Plan
-
Anticipated discharge today.
Assessment / Plan
Assessment / Plan
Patient is a 79y F with PMH significant for ASCVD, essential hypertension and DM-II who presents to ED complaining of new-onset cough, weakness and fever.
COVID-19 Infection mild
Transient hypoxia in ER ;currently none
- O2sat is 95% on room air. CXR normal. Pt/family declined Paxlovid.
- No indication for dexamethasone.
- CW supportive care. Proper precautions.
- Patient has residual cough and is being discharged on Robitussin and Tessalon
DM-II
- Blood glucose levels improved. Current BG is 267.
- Hemoglobin A1c: 8.5
- Placed on moderate dose SSI. Continues to receive 50 units Lantus
- Discharging patient on prior home insulin dosing
Essential Hypertension
- Stable. Continue metoprolol with holding parameters.
- Will continue metoprolol after discharge.
ASCVD
- Stable. Continue ASA after discharge.
- Statin intolerant - on Repatha as an outpatient.
DDD
- s/p cervical spine fusion in October 2023.
- Doing well with PT - is in active therapy.
- PT / OT evaluations ongoing during stay.
- Pt on lidocaine patch and over the counter pain medication at home
History of recurrent UTI:
U/C (sent on 03/11/24): Positive for E. coli
-Ceftriaxone switched to cephalexin 500 mg PO TID to take at home after discharge
DVT Prophylaxis: Lovenox
Code Status: Full
PT recs SNF
CM to look into disposition to rehab.
Medically stable for DC .
Anticipated Discharge: Today
Subjective/Interval History
-
Date of Service: March 15, 2024
Patient awake, afebrile and feeling much better from her covid symptoms. She is experiencing neck and back pain from her DDD. She still has a slight residual cough for which she requested some cough suppressants to be sent home with. She is ready to
go home to sleep in her own bed.
Objective Data
-
Vital Signs:
Vital Signs
Temp Pulse Resp BP Pulse Ox
98.3 F 66 18 141/54 93
03/15/24 07:30 03/15/24 09:54 03/15/24 07:30 03/15/24 09:54 03/15/24 07:30
I&O
03/14/24 03/15/24 03/16/24
06:59 06:59 06:59
Intake Total 1440 / 1440 1919
Balance 1440 / 1440 1919
Review of Systems
-
History Source: Patient
Constitutional: Reports No Symptoms
EENT: Reports No Symptoms Reported
Respiratory: Reports Cough; Denies Trouble Breathing
Cardiac: Reports No Symptoms
Abdomen/GI: Reports No Symptoms
Breast: Reports No Symptoms
Genitourinary: Reports No Symptoms
Musculoskeletal: Reports Joint Pain and Muscle Stiffness
Skin: Reports No Symptoms
Neuro: Reports No Symptoms
Endocrine: Reports No Symptoms
Hematologic / Lymphatic: Reports No Symptoms
Allergy / Immunology: Reports No Symptoms
Physical Exam
-
General: Well Developed
HEENT: Negative Oxygen
Respiratory: Clear to Auscultation
Cardiac: Regular Rhythm and S1/S2
GI: Soft, Nontender, Nondistended and Normal Bowel Sounds
Musculoskeletal: No Clubbing, No Cyanosis and No Edema
[2024-03-15 12:59] LABS: Glucose - Point of Care 328 mg/dl (70-99)
[2024-03-15] MEDS: NOVOLOG FLEXPEN-LOW RESISTANCE 4 UNITS SC (13:01)
[2024-03-15] MEDS: NOVOLOG FLEXPEN 18 UNITS SC (13:01)
--- NOTE | 2024-03-15 13:48 | CM ---
Patient for discharge home with daughter and [facility] to follow. CM will continue to follow for discharge planning needs.
Plan; home with [facility] to follow
[2024-03-15] MEDS: LIDOCAINE 4% PATCH 1 PATCH TOPICAL (13:54)
[2024-03-15 14:50] VITALS: BP 137/70
--- NOTE | 2024-03-15 16:20 | W.DCSUMMARY ---
Addendum entered and electronically signed by Sheri Guillen MD 03/15/24 19:57:
Read, reviewed, and agree. See same day progress note for additional details. Time spent coordinating care, DC planning, review of DC plan of care with resident, transition of care, review of records in EMR, med rec, consults, notes, d/w
consultants, nursing, family, and CM=33 minutes.
Original Note:
Discharge Summary
Discharge Data
Date of Admission: 03/11/24
Date of Discharge: 03/15/24
-
Pending Results: No
Hospital Course
Primary diagnosis:
-Covid-19
-Uncomplicated urinary tract infection
Secondary diagnosis:
-DM-II
-Essential Hypertension
-Atherosclerotic cardiovascular disease
-Degenerative disk disease
Hospital Course:
79 year old female presented to the ER on 03/11 with fever, weakness and cough. The night prior, she developed a non-productive cough that continued through the night. The next day her family was unable to get her standing/ambulating. Patient also
complained of headache and dizziness. Patient was in additional pain due to degenerative disk disease. She has been in PT following cervical fusion done at [place] in October. Prior to getting sick she was able to ambulate without an assist device.
Work up in the ED revealed acute hypoxemic respiratory insufficiency secondary to COVID-19 (+) test and (+) urine analysis. Patient is unvaccinated and declined paxlovid therapy. Oxygen via nasal cannula and dexamethasone was initiated for
respiratory insufficiency and ceftriaxone for (+) urine culture for Escherichia coli. Chest x-ray did not reveal any acute cardiopulmonary changes. Oxygen saturation improved over next couple days.
Today, the patient's vitals are stable and she feels much better. She is being sent home with Robitussin, dextromethorphan and cephalexin for her urinary tract infection. The patient has been in discomfort due to her neck and was also given a
lidocaine patch to be sent home with. She is being discharged with a visiting nurse.
Discharge Plan
-
Patient Disposition: Home with Home Care
Discharge Diagnosis/Procedures: Covid 19, Diabetes Mellitus type 2, Essential Hypertension, Atherosclerotic cardiovascular disease, Degenerative disc dysplasia, Escherichia coli urinary tract infection
Condition: Good
Diet: Diabetic, Carb Controlled
Activity: As tolerated
Driving Restrictions: As prior to admission
Bathing Restrictions: None
Other Services: VN
Referrals:
Jose Gagnon MD [Family Provider] - in less than 1 week
Prescriptions:
New
acetaminophen 325 mg Tablet
650 mg PO Q4HPRN PRN (Reason: Mild Pain / Temp > 101) Qty: 0 0RF
insulin aspart U-100 100 unit/mL (3 mL) Insulin Pen
15 unit SC DAILY Qty: 0 0RF
insulin aspart U-100 100 unit/mL (3 mL) Insulin Pen
18 unit SC DAILY@1200 Qty: 0 0RF
insulin aspart U-100 100 unit/mL (3 mL) Insulin Pen
27 unit SC DAILY@1700 Qty: 0 0RF
benzonatate 200 mg capsule
200 mg PO TID PRN (Reason: Cough) Qty: 15 0RF
dextromethorphan polistirex [Robitussin ER] 30 mg/5 mL suspension,extended rel 12 hr
10 ml PO Q12H PRN (Reason: Cough) Qty: 89 0RF
cephalexin 500 mg capsule
500 mg PO TID Qty: 9 0RF
Continued
pantoprazole 40 MG tablet,delayed release (DR/EC)
40 mg PO DAILY Qty: 30 11RF
duloxetine 30 mg Capsule,Delayed Release(Dr/Ec)
30 mg PO BID
multivitamin Tablet
1 tab PO DAILY
magnesium 200 mg Tablet
200 mg PO DAILY
omega [id number] oil [Fish Oil] 1,000 mg (120 mg-180 mg) Capsule
1 cap PO DAILY@1200
aspirin 81 MG tablet,delayed release (DR/EC)
81 mg PO HS
methenamine hippurate [Hiprex] 1 gram Tablet
1 g PO BID
insulin glargine [Lantus Solostar U-100 Insulin] 100 unit/mL (3 mL) Insulin Pen
56 unit SC HS
Repatha SureClick 140 mg/mL Pen Injector
140 mg SC Q2W
Gemtesa 75 mg Tablet
75 mg PO QPM
insulin aspart U-100 [Novolog FlexPen U-100 Insulin] 100 unit/mL (3 mL) Insulin Pen
4 - 6 unit SC AC
Probiotic 3 billion cell Capsule
6,000 mmu cells PO DAILY
metoprolol succinate 25 mg tablet extended release 24 hr
25 mg PO BID
Discharge Orders:
Discharge Patient (As Directed); Ordered 03/15/24
Ordered By: Татьяна Sanchez
Discharge Date and Time
Discharge Date/Time: 03/15/24 15:30
Print Language: MAURITIAN
== END 2024-03-15 15:30 | disposition home health service (06) | DRG 178 ==
LOC: 2 NORTH 21:15
PROVIDERS: Emergency Medicine; Internal Medicine; Nurse Practitioner; ADMITTING PHYSICIAN Hospitalist; ATTENDING PHYSICIAN Internal Medicine; EMERGENCY PHYSICIAN Emergency Medicine; FAMILY PHYSICIAN Internal Medicine Geriatric Medicine
DX: U07.1 COVID-19 (principal); N39.0 Urinary tract infection, site not specified; D50.9 Iron deficiency anemia, unspecified; E11.42 Type 2 diabetes mellitus with diabetic polyneuropathy; E78.00 Pure hypercholesterolemia, unspecified; G43.909 Migraine, unspecified, not intractable, without status migrainosus; H35.30 Unspecified macular degeneration; I10 Essential (primary) hypertension; I25.10 Atherosclerotic heart disease of native coronary artery without angina pectoris; K21.9 Gastro-esophageal reflux disease without esophagitis; R09.02 Hypoxemia; R06.89 Other abnormalities of breathing; B96.20 Unspecified Escherichia coli [E. coli] as the cause of diseases classified elsewhere; J45.909 Unspecified asthma, uncomplicated; K75.81 Nonalcoholic steatohepatitis (NASH); E11.36 Type 2 diabetes mellitus with diabetic cataract; Z79.4 Long term (current) use of insulin; Z79.82 Long term (current) use of aspirin; Z98.1 Arthrodesis status; Z87.440 Personal history of urinary (tract) infections; Z88.5 Allergy status to narcotic agent; Z88.0 Allergy status to penicillin; Z88.2 Allergy status to sulfonamides; Z91.018 Allergy to other foods
CPT/HCPCS: 71046; 80048; 80053; 81003; 81015; 82947; 82962; 83036; 84484; 85025; 85027; 87077; 87086; 87186; 87811; 93005; 96360; 97116; 97163; 97166; 97530; 99285

== ENCOUNTER 2024-04-06 09:07 | Outpatient (RCR) | payer OTHER, SELFPAY | END 2024-04-16 08:10 | disposition home or self-care (01) | LOC: RPT 09:07 | PROVIDERS: ATTENDING PHYSICIAN Internal Medicine Geriatric Medicine | DX: R26.9 Unspecified abnormalities of gait and mobility (principal); Q76.1 Klippel-Feil syndrome; Z91.81 History of falling; R53.81 Other malaise | CPT/HCPCS: 97110; 97162; 97167; 97530 ==